=== PATIENT | female | born 2000 | race Caucasian/White ===

== ENCOUNTER → 2021-04-19 08:40 | Outpatient (CLI) | payer BC, MEDICAID, SELFPAY ==
--- NOTE | ~2021-04-19 | US_ITS ---
EXAMINATION: US OB follow up DATE: 04/19/2021 09:10 INDICATION: Anatomic survey. TECHNIQUE: Real-time ultrasound of the pelvis was performed. COMPARISON: None. FINDINGS: There is a single living fetus in breech presentation. The placenta is anterior, 7.8 cm from the cer vix. heart rate is 155 beats per minute (bpm). The amniotic fluid volume is subjectively normal . The following biometric data were obtained: Biparietal diameter (BPD): 5.5 cm; head circumference (HC): 20.3 cm; abdominal circumference (AC): 17 .7 cm; femur length (FL): 4.3 cm. These measurements are discordant with FL/AC > 2 standard deviations of the mean. Estimated weight is 563 g +/- 84 g, which correlates with the <3rd percentile when 07/11/21 is u sed as estimated date of delivery. As single measurements, these parameters are each equal to the following estimated gestational ages w ith ranges of +/- 2 standard deviations: BPD: 22 weeks 5 days (21 weeks 0 days - 24 weeks 3 days). HC: 22 weeks 3 days (21 weeks 0 days - 23 weeks 6 days). AC: 22 weeks 4 days (20 weeks 4 days - 24 weeks 5 days). FL: 24 weeks 0 days (22 weeks 1 days - 25 weeks 5 days). estimated gestational age based solely on measurements from this exam is 23 weeks 0 days +/- 1 weeks 4 days. The four-chamber heart view is normal. There is suboptimal visualization of the heart outflow t racts. IMPRESSION: 1. Single living fetus in breech presentation. 2. Small for gestational age. Estimated weight is 563 g +/- 84 g, which correlates with the <3 rd percentile when 07/11/21 is used as estimated date of delivery. 3. Discordant biometrics with high FL/AC. 4. Normal four-chamber heart view. Suboptimal visualization of the heart outflow tracts. Reviewed, dictated and finalized at location A. ER HELPER IMPRESSION: 1. Single living fetus in breech presentation. 2. Small for gestational age. Estimated weight is 563 g +/- 84 g, which correlates with the <3rd percentile when 07/11/21 is used as estimated date of d elivery. 3. Discordant biometrics with high FL/AC. 4. Normal four-chamber heart view. Suboptimal visualization of the heart outflow tracts.
== END ==
PROVIDERS: PCP Physician Assistant; Visit Provider Obstetrics & Gynecology Gynecology
DX: Z34.92 Encounter for supervision of normal pregnancy, unspecified, second trimester (principal); Z3A.23 23 weeks gestation of pregnancy
CPT/HCPCS: 76816

== ENCOUNTER 2021-06-23 16:06 | Inpatient (IN) | payer BC, OTHER, SELFPAY ==
[2021-06-23] VITALS (12 sets, daily range): BP systolic 100–124; BP diastolic 50–79; PULSE 88–112; TEMP 36.6; BMI 31.6
--- NOTE | 2021-06-23 16:06 | LDADM ---
This patient, Anette Mccall, was admitted to Labor/Delivery/Recovery 107 on 06/23/21 at 16:06. Plans for labor, pain management and were discussed with patient. Patient/family oriented to hospital policies and general routines including ID bracelet, bed and alarms, visiting hours, pain management, procedures, bathroom and other care routines, personal items, smoking policy, room service/diet and guest tray routines, security routines, and visiting hours. Patient/Family are encouraged to report perceived risks to care and to ask questions if they do not understand what they are told or what they should do. See OBIX for further documentation.
[2021-06-23 16:50] LABS: Basophils Absolute Auto 0.1 K/mm3 (0.0-0.1); Basophils Percent Auto 0.3 % (0.2-1.2); Eosinophils Absolute Auto 0.2 K/mm3 (0-0.3); Eosinophils Percent Auto 1.3 % (0-4.4); Hematocrit 30.3 % (37.0-47.0); Hemoglobin 10.2 g/dL (12.0-15.0); Immature Granulocyte Absolute 0.09 K/mm3 (0.00-0.031); Immature Granulocyte Percent A 0.5 % (0-0.5); Lymphocytes Absolute Auto 3.85 K/mm3 (0.9-3.2); Lymphocytes Percent Auto 21.5 % (18.3-44.2); Mean Corpuscular HGB Conc 33.7 g/dl (32-36); Mean Platelet Volume 9.7 fl (7.4-10.4); Monocytes Percent Auto 5.8 % (2.6-8.5); Neutrophils Absolute Auto 12.7 K/mm3 (1.3-6.7); Neutrophils Percent Auto 70.6 % (45.5-73.1); Platelet Count Result 362 k/mm3 (150-375); Red Blood Count 3.19 M/mm3 (4.2-5.4); Red Cell Distribution Width 12.7 % (11.5-14.5); White Blood Count 17.9 K/mm3 (4.5-10.0)
[2021-06-23] MEDS: DINOPROSTONE 10 MG VAG INSERT VAGINAL (16:52)
[2021-06-23 17:06] LABS: Amphetamine Screen Urine Negative (Negative); Barbiturate Screen Urine Negative (Negative); Benzodiazepines Screen Urine Negative (Negative); Cannabinoid Screen Urine Negative (Negative); Cocaine Screen Urine Negative (Negative); Methadone Screen Urine Negative (Negative); Opiate Screen Urine Negative (Negative); Phencyclidine Screen Urine Negative (Negative)
[2021-06-23 17:43] LABS: HIV 1/2 Ab P24 Ag Result Negative (Negative)
[2021-06-23] MEDS: ACETAMINOPHEN 500 MG TABLET 1000 MG PO (21:11)
[2021-06-24] VITALS (123 sets, daily range): BP systolic 66–124; BP diastolic 39–95; PULSE 71–125; TEMP 36.6–36.9; O2SAT 82–100
[2021-06-24] MEDS: fentaNYL CITRATE INJ (*CRX) 100 MCG/2 ML VIAL IV PUSH (00:13)
--- NOTE | 2021-06-24 03:43 | WPDANESEPP ---
Anes - Eval Pre Procedure Procedure: Labor epidural Date/Time: 06/24/21 03:43 Surgeon: Lex Preop Diagnosis: Abd pain with contractions Pre Op Diagnosis: Induction of Labor Patient Data Age: 20 Gender: F Height: 1.55 m Weight: 76 kg Last Vital Signs Temp 98 F 06/24/21 00:20 Pulse 83 06/24/21 03:30 BP 116/70 06/24/21 03:30 Allergies Allergy/AdvReac Type Severity Reaction Status Date / Time No Known Allergies Allergy Unverified 10/09/13 17:15 Home Medications Medication Instructions Recorded Confirmed Type PNV cmb#95-ferrous fumarate-FA 1 tablet PO DAILY 06/13/21 06/13/21 History [] escitalopram oxalate 10 mg PO DAILY 06/13/21 06/13/21 History ferrous sulfate [Iron (ferrous 325 mg PO DAILY 06/13/21 06/13/21 History sulfate)] metoclopramide HCl [Reglan] 10 mg PO Q6H PRN 06/13/21 06/13/21 History ondansetron HCl [Zofran] 8 mg PO Q8H 06/13/21 06/13/21 History Laboratory Tests 06/23/21 06/23/21 06/23/21 16:29 16:29 16:29 WBC 17.9 K/mm3 H K/mm3 (4.5-10.0) RBC 3.19 M/mm3 L M/mm3 (4.2-5.4) Hgb 10.2 g/dL L g/dL (12.0-15.0) Hct 30.3 % L % (37.0-47.0) MCV 95.0 fl fl (80-100) MCH 32.0 pg pg (26-34) MCHC 33.7 g/dl g/dl (32-36) RDW 12.7 % % (11.5-14.5) Plt Count 362 k/mm3 k/mm3 (150-375) MPV 9.7 fl fl (7.4-10.4) Immature Gran % (Auto) 0.5 % % (0-0.5) Neut % (Auto) 70.6 % % (45.5-73.1) Lymph % (Auto) 21.5 % % (18.3-44.2) Hardin % (Auto) 5.8 % % (2.6-8.5) Eos % (Auto) 1.3 % % (0-4.4) Baso % (Auto) 0.3 % % (0.2-1.2) Lymph # (Auto) 3.85 K/mm3 H K/mm3 (0.9-3.2) Hardin # (Auto) 1.0 K/mm3 H K/mm3 (0.1-0.6) Eos # (Auto) 0.2 K/mm3 K/mm3 (0-0.3) Baso # (Auto) 0.1 K/mm3 K/mm3 (0.0-0.1) Abs Immat Gran (auto) 0.09 K/mm3 H K/mm3 (0.00-0.031) Absolute Neuts (auto) 12.7 K/mm3 H K/mm3 (1.3-6.7) Absolute Nucleated RBC 0.0 K/mm3 K/mm3 (0.0-0.012) Nucleated RBC % 0.0 % % (0.0-0.2) Urine Opiates Screen Urine Methadone Screen Ur Barbiturates Screen Ur Phencyclidine Scrn Ur Amphetamine Screen U Benzodiazepines Scrn Urine Cocaine Screen U Cannabinoids Screen RPR Pending HIV 1&2 Ab/P24 Ag 4thGn Negative (Negative) Blood Type Antibody Screen 06/23/21 06/23/21 16:29 16:29 WBC RBC Hgb Hct MCV MCH MCHC RDW Plt Count MPV Immature Gran % (Auto) Neut % (Auto) Lymph % (Auto) Hardin % (Auto) Eos % (Auto) Baso % (Auto) Lymph # (Auto) Hardin # (Auto) Eos # (Auto) Baso # (Auto) Abs Immat Gran (auto) Absolute Neuts (auto) Absolute Nucleated RBC Nucleated RBC % Urine Opiates Screen Negative (Negative) Urine Methadone Screen Negative (Negative) Ur Barbiturates Screen Negative (Negative) Ur Phencyclidine Scrn Negative (Negative) Ur Amphetamine Screen Negative (Negative) U Benzodiazepines Scrn Negative (Negative) Urine Cocaine Screen Negative (Negative) U Cannabinoids Screen Negative (Negative) RPR HIV 1&2 Ab/P24 Ag 4thGn Blood Type O Positive Antibody Screen Negative Patient hx anesthesia problems: none Family hx anesthesia problems: none Results Review: All pre-operative results and documents have been reviewed as part of the pre-operative evaluation. [facility] Past Medical History Medical History Anxiet
[2021-06-24] MEDS: LACTATED RINGERS 1,000 ML 999 ML IV CONT ×2 (03:57→04:20)
[2021-06-24] MEDS: LACTATED RINGERS 1,000 ML 125 ML IV CONT ×3 (05:09→16:22)
[2021-06-24] MEDS: OXYTOCIN 30 UNITS/NS 500 ML 30 UNITS/500 ML BAG 6 UNITS IV CONT (05:40)
[2021-06-24] MEDS: fentaNYL CITRATE INJ (*CRX) 100 MCG/2 ML VIAL 50 MCG IV PUSH (07:49)
--- NOTE | 2021-06-24 07:51 | WPDOBADMIT ---
Obstetrics - Admit Note Admission Note: record reviewed. No pertinent additions to the history and/or any subsequent changes in the physical findings that are not consistent with the expected course of the were found. Additions to the history and/or subsequent changes in the physical findings follow. Here for MIL IUGR at 37wks. Followed by MFM and has been <1 %EFW for weeks. Normal dopplers, normal monitoring. Cervadil last pm. Cervix still closed/50. States feeling contractions all night. Now on Pitocin.
[2021-06-24 08:52] LABS: Rapid Plasma Reagin Non-Reactive (NonReactive)
--- NOTE | 2021-06-24 17:21 | PM.OBPNLAB ---
Pain Control Date/time seen: 06/24/21 17:21 Pelvic Exam Dilation (cm): 1 Effacement (%): 0 station: -2 Amniotic membrane status: Ruptured (AROM)
[2021-06-24] MEDS: ONDANSETRON INJ 4 MG/2 ML VIAL IV PUSH (20:45)
[2021-06-25] VITALS (196 sets, daily range): BP systolic 66–130; BP diastolic 22–84; PULSE 68–120; RESP 16–18; TEMP 36.4–37.2; O2SAT 92–100
[2021-06-25] MEDS: LACTATED RINGERS 1,000 ML 125 ML IV CONT (02:01)
[2021-06-25] MEDS: diphenhydrAMINE HCl INJ 50 MG/ML VIAL IV PUSH (02:48)
[2021-06-25] MEDS: OXYTOCIN 30 UNITS/NS 500 ML 30 UNITS/500 ML BAG 6 UNITS IV CONT (04:58)
--- NOTE | 2021-06-25 07:08 | PM.OBPNLAB ---
Pain Control Date/time seen: 06/25/21 07:08 Pain control: tolerating well and epidural Pelvic Exam Dilation (cm): 3 Effacement (%): 70 station: -2 Amniotic membrane status: Ruptured (AROM) Comments: cervix 3-4 cm Assessment and Plan Plan: continuous present management
[2021-06-25] MEDS: ESCITALOPRAM OXALATE 10 MG TABLET PO (08:42)
[2021-06-25] MEDS: AMPICILLIN 2 GM/NS 100 ML 2 GM/100 ML BAG IVPB (11:23)
--- NOTE | 2021-06-25 13:35 | PM.OBPRVD ---
OB - Delivery Note Procedure Delivery date: 06/25/21 Procedure: Events: Intrauterine Growth Restriction (IUGR) Induction method: AROM, Per Pitocin Protocol and Per Cervidil Protocol Delivery monitor: External FHT and Internal Uterine Route of delivery: Laceration Description: Perineal - 2nd Degree and Other (Right Bartholin gland marsupilization) Delivery repair: vicryl (3-0 vicryl) Specimen: Yes (placenta) Quantitative Blood Loss (ml): 150 Anesthesia type: Epidural Disposition: Floor Narrative: Right bartholin cyst 4x3cm I&D. marsupilized with 3-0 vicryl x 4 Baby Date of : 06/25/21 Weeks of gestation at delivery: 37 Infant gender: Female Weight (pounds): 4 presentation: vertex position: Right Occiput Anterior Placenta delivery description: Spontaneous Cord Vessel Description: 3 Vessels and Nuchal Cord (x 1) score one minute: 8 score five minutes: 9
--- NOTE | 2021-06-25 13:37 | PM.OBDSVD ---
DS: Admitting Diagnosis Discharge Date 06/26/21 Admitting Diagnosis IUP 37 wks for MIL for IUGR DS: Discharge Diagnosis Discharge Diagnosis (1) (normal spontaneous vaginal delivery): Code(s): O80 - Encounter for full-term uncomplicated delivery Status: Acute OB - DS: Summary OB Procedures : NST and Ultrasound OB Procedures Intrapartum: Spontaneous Vag Delivery OB Procedures: : Other (right bartholin cyst marsupilization) Peripartum Data Infant Delivery Method: Natural Vaginal Laceration Description: Perineal - 2nd Degree complications: none Status at Discharge Functional status at discharge: independent ambulation Overall status at discharge: patient is progressing back to baseline Time Spent with Patient Time attestation: Total time spent providing and/or coordinating discharge services: DS: Data Data Completed and Pending Pending studies at discharge: Pending at discharge 06/25/21 13:24 Surgical [PTH] Routine Discharge Plan Discharge Attending physician on discharge: Shannan Burnett Discharging Clinician: Shannan Burnett Anticipated Discharge Date/Time: 06/26/21 07:23 Patient Disposition: Home, Self-Care Activity: may shower and pelvic rest Diet: regular Patient Instructions: Antibiotic Form Stand Alone Forms: General Discharge Information Follow-up/Referrals: Shannan Burnett MD [Physician] - 6 Weeks Discharge Medications: Continued ferrous sulfate [Iron (ferrous sulfate)] 325 mg (65 mg iron) Tablet 325 mg PO DAILY RF: 0 PNV cmb#95-ferrous fumarate-FA [] 28 mg iron- 800 mcg Tablet 1 tablet PO DAILY RF: 0 escitalopram oxalate 10 mg Tablet 10 mg PO DAILY RF: 0 Discontinued ondansetron HCl [Zofran] 8 mg Tablet 8 mg PO Q8H RF: 0 metoclopramide HCl [Reglan] 10 mg Tablet 10 mg PO Q6H PRN (Reason: Nausea And Vomiting) RF: 0 Date of admission: 06/23/21 16:06 Primary Care Provider: PHYSICIAN,SPRAY FOAM INSTALLER Admitting Provider: Shannan Burnett Attending physician on admission: Shannan Burnett Condition: Stable Care Plan Goals: Plans Nexplanon at week 3
[2021-06-25] MEDS: OXYTOCIN 30 UNITS/NS 500 ML 30 UNITS/500 ML BAG 125 UNITS IV CONT (13:50)
[2021-06-25] MEDS: IBUPROFEN 600 MG TABLET PO ×2 (15:44→22:49)
[2021-06-25] MEDS: WITCH HAZEL 40 PADS 1 PAD TOPICAL (15:45)
--- NOTE | 2021-06-25 16:40 | PC.NURSE ---
Patient transferred to post room #281 per wheelchair at 1640. Support person present. Oriented to unit, room, information board, rooming in, admission packet and security measures. Patient verbalizes understanding.
--- NOTE | 2021-06-25 17:00 | PC.NURSE ---
Pt. states that she does not want to breast feed but desires to pump and feed along with formula feeding. Will set pt. up with breast pump and teach regarding use.
[2021-06-25] MEDS: ACETAMINOPHEN 325 MG TABLET 650 MG PO (20:21)
[2021-06-26] MEDS: ZOLPIDEM TARTRATE (*CRX) 5 MG TABLET PO (01:13)
[2021-06-26 04:30] VITALS: BP 124/72; PULSE 82; RESP 16; TEMP 36.9
[2021-06-26 05:28] LABS: Hematocrit 27.5 % (37.0-47.0)
--- NOTE | 2021-06-26 07:22 | PM.OBPNVD ---
OB - PN: Subj Subjective Date/time seen: 06/26/21 07:22 Patient comments: no complaints and pain well controlled baby status: other (getting transferred to [facility] ) feeding status: exclusively breast feeding OB - PN: Obj Data Labs CBC & Chem 7: 06/26/21 05:01 Labs: Laboratory Results - last 24 hr 06/26/21 05:01 Hgb 9.0 L Hct 27.5 L OB - PN A/P Plan day: 1 Plan: routine care, discharge home, follow up 6 weeks and other (Plans Nexplanon at week 3) Time Spent With Patient Time: Total time spent is greater than 50% in coordination of care (as documented) at patient's floor/unit and/or counseling patient: Exam : Bimanual exam- vagina & uterus: other (Uterus firm, nt @U)
[2021-06-26] MEDS: WITCH HAZEL 40 PADS 1 PAD TOPICAL (07:25)
[2021-06-26] MEDS: POLYSACCHARIDE IRON COMPLEX 150 MG CAPSULE PO (07:25)
[2021-06-26] MEDS: BENZOCAINE 20% AER SPR (*SP) 56 GM CAN 1 SPRAY TOPICAL (07:25)
[2021-06-26] MEDS: MULTIVIT/MIN/PREN/FOL AC/IRON TABLET 1 TAB PO (07:25)
[2021-06-26] MEDS: ESCITALOPRAM OXALATE 10 MG TABLET PO (07:26)
[2021-06-26] MEDS: IBUPROFEN 600 MG TABLET PO (07:26)
[2021-06-26 08:00] VITALS: BP 120/88; PULSE 88; RESP 20; TEMP 36.7; O2SAT 100
--- NOTE | 2021-06-26 09:45 | PC.NURSE ---
Discharge instructions given to pt. regarding when to make appt. with Dr. Burnett office. Pt. states that she does not desire to return tomorrow for follow up visit since infant transferred to [facility]. Pt. verbalized understanding. No questions or concerns voiced. Pt. mother at side.
--- NOTE | 2021-06-26 09:53 | WPDANLDPN2 ---
Anes-Prog Note L&D Date/Time: 06/26/21 09:53 Comfortable throughout: labor and delivery Neuraxial method: epidural Epidural/Spinal procedure site: clean & non-tender Neuro status: Neuro function grossly intact. Cardiovascular status: normal Respiratory status: normal Airway patency: baseline Mental status: baseline Post-Op hydration status: normal Vital Signs: Last Vital Signs Temp 36.7 C 06/26/21 08:00 Pulse 88 06/26/21 08:00 Resp 20 06/26/21 08:00 BP 120/88 06/26/21 08:00 Pulse Ox 100 06/26/21 08:00 Pain score (VAS): 0 I/O: Intake & Output 06/25/21 06/26/21 06/26/21 23:59 07:59 15:59 Intake Total 250 Output Total 85 Balance 165 Post-procedural complaints: none Patient feedback: Patient satisfied with anesthetic care.
--- NOTE | 2021-06-26 12:04 | PC.NURSE ---
1000 - Introductions were made and mother led the conversation with regards to her experience pumping to stimulate milk production for her baby. Reminded parents to use good handwashing to prevent infection. Infant is being transferred to [facility]. Reviewed production of human milk, pumping 8 times in 24 hours with 1-2 times at night, collecting and storage of breastmilk using the resource mom and baby guide. Reviewed community resources and outpatient services as listed in the mom and baby guide/[facility] website. Mother voiced understanding of information shared.
== END 2021-06-26 09:51 | disposition home or self-care (01) | DRG 807 ==
LOC: ANHLDR 06-25 13:39 → ANHOB2 06-25 16:44
PROVIDERS: Admitting Provider Obstetrics & Gynecology Gynecology; Visit Provider Obstetrics & Gynecology Gynecology
DX: O36.5930 Maternal care for other known or suspected poor fetal growth, third trimester, not applicable or unspecified (principal); Z37.0 Single live birth; Z3A.37 37 weeks gestation of pregnancy; O70.1 Second degree perineal laceration during delivery; O69.81X0 Labor and delivery complicated by cord around neck, without compression, not applicable or unspecified; O99.892 Other specified diseases and conditions complicating childbirth; N75.0 Cyst of Bartholin's gland
CPT/HCPCS: 36415; 80307; 84112; 85014; 85018; 85025; 86592; 86703; 86850; 86900; 86901; A9270; G0432; J0290; J1200; J2405; J2590; J2795; J3010; J7120

== ENCOUNTER 2021-11-04 13:22 | Emergency (ER) | payer BC, OTHER, SELFPAY ==
--- NOTE | ~2021-11-04 | XR_ITS ---
EXAMINATION: XR ankle RT min 3V DATE: 11/04/2021 13:38 INDICATION: Right ankle pain. TECHNIQUE: 4 views of right ankle were obtained. COMPARISON: None. FINDINGS: Bone alignment is normal. No fracture. Joint spaces are normal. There is ankle soft tissue swelling. IMPRESSION: 1. No fracture. Reviewed, dictated and finalized at location A. IMPRESSION: 1. No fracture.
--- NOTE | ~2021-11-04 | CT_ITS ---
EXAMINATION: CT foot RT wo con DATE: 11/04/2021 15:48 INDICATION: Calcaneus fracture. TECHNIQUE: Computed tomography (CT) of the right foot was performed without intravenous contrast. Aut omated exposure control and iterative reconstruction technique were employed. The dose-length product was 476.50 mGy-cm. COMPARISON: Right foot and ankle radiographs 11/04/2021 FINDINGS: There is a comminuted fracture of body of calcaneus. The main posterior fracture fragment d emonstrates impaction and 3 mm lateral displacement. Two nondisplaced fracture lines involve the post erior facet. Joint spaces are normal. There is moderate fatty atrophy of quadratus plantae muscle. IMPRESSION: 1. Comminuted intra-articular fracture of calcaneus, Lockhart type I. Reviewed, dictated and finalized at location A.
--- NOTE | ~2021-11-04 | CT_ITS ---
EXAMINATION: CT brain wo con DATE: 11/04/2021 16:12 INDICATION: head injury, bruising . TECHNIQUE: Computed tomography (CT) of the head was performed without intravenous contrast. The mA wa s adjusted according to patient size. Iterative reconstruction technique was employed. The dose-lengt h product was 605.33 mGy-cm. COMPARISON: None FINDINGS: No acute intracranial hemorrhage or extra-axial fluid collection. No hydrocephalus, mass, or herniation. No acute ischemic infarct. Unremarkable dural venous sinus attenuation. No acute osseous abnormality. Ethmoid air cell mucosal thickening, otherwise the aerated spaces are clear. IMPRESSION: No acute intracranial process. Reviewed, dictated and finalized at location K.
--- NOTE | ~2021-11-04 | XR_ITS ---
EXAMINATION: XR foot RT min 3V DATE: 11/04/2021 13:38 INDICATION: Right foot pain. Fall. TECHNIQUE: 4 views of right foot were obtained. COMPARISON: None. FINDINGS: There may be a joint depression fracture of calcaneus. Joint spaces are normal. IMPRESSION: 1. Possible joint depression fracture of calcaneus. Calcaneus CT is recommended. Reviewed, dictated and finalized at location A. IMPRESSION: 1. Possible joint depression fracture of calcaneus. Calcaneus CT is recommended .
[2021-11-04 13:20] VITALS: BP 134/79; PULSE 89; RESP 16; TEMP 36.5; O2SAT 99
[2021-11-04 14:14] VITALS: BP 122/99; PULSE 98; RESP 17; O2SAT 100
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
[2021-11-04 15:03] VITALS: BP 136/79; PULSE 94; RESP 16; O2SAT 100
[2021-11-04] MEDS: ONDANSETRON INJ 4 MG/2 ML VIAL IV PUSH (15:26)
[2021-11-04] MEDS: MORPHINE SULFATE (*CRX) 4 MG/ML INJ IV PUSH (15:26)
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
[2021-11-04] MEDS: HYDROmorphone HCL INJ (*CRX) 1 MG/ML SYR IV PUSH (17:28)
--- NOTE | 2021-11-04 17:38 | PC.NURSE ---
report given to CAROLINA Yañez at [facility]. pt placed in c-collar per their request.
[2021-11-04 18:37] VITALS: BP 149/96; PULSE 76; RESP 18; O2SAT 100
[2021-11-04 18:58] VITALS: PULSE 86; RESP 20; O2SAT 100
--- NOTE | 2021-11-13 10:21 | PC.NURSE ---
LATE ENTRY This note is being entered to document information to the patient's record. The following information was omitted on [11/13/21], by [CAROLINA De Santiago]. Per EDP Lyn Tate, posterior short leg splint applied to the right leg. VORB.
== END 2021-11-04 19:01 | disposition short-term general hospital (02) ==
PROVIDERS: Emergency Provider Emergency Medicine
DX: S92.061A Displaced intraarticular fracture of right calcaneus, initial encounter for closed fracture (principal); E66.3 Overweight; Z68.32 Body mass index [BMI] 32.0-32.9, adult; F41.9 Anxiety disorder, unspecified; F43.10 Post-traumatic stress disorder, unspecified; F17.200 Nicotine dependence, unspecified, uncomplicated; Y04.8XXA Assault by other bodily force, initial encounter
CPT/HCPCS: 29515; 70450; 73610; 73630; 73700; 96374; 96375; 99285; J1170; J2270; J2405; L0140

== ENCOUNTER → 2022-07-09 11:06 | Outpatient (CLI) | payer OTHER, MEDICAID, SELFPAY ==
--- NOTE | ~2022-07-09 | XR_ITS ---
EXAM: XR abdomen/kub 1V DATE: 07/09/2022 11:51 HISTORY: Rt flank pain x 2 wks . COMPARISON: None available. FINDINGS: Clear lung bases. Normal bowel gas pattern. No organomegaly. 3 and 4 mm calcifications pro ject over the right inferior kidney. Punctate calcifications project over the mid left kidney. Region al bones and soft tissues normal for age. IMPRESSION: Bilateral nephrolithiasis. Otherwise normal abdominal radiograph findings. Reviewed, dictated and finalized at location K. IMPRESSION: Bilateral nephrolithiasis. Otherwise normal abdominal radiograph fi ndings.
--- NOTE | ~2022-07-09 | XR_ITS ---
Thoracic spine: Clinical Indication: Back pain AP and lateral views were performed. No fracture is seen. There is normal alignment of the vertebrae. The intervertebral disc spaces appe ar normal. Paravertebral soft tissues appear normal. Impression: No significant abnormalities noted. Reviewed, dictated and finalized at [facility]. Impression: No significant abnormalities noted.
== END ==
PROVIDERS: PCP Physician Assistant; Visit Provider Physician Assistant
DX: M54.6 Pain in thoracic spine (principal); N20.0 Calculus of kidney
CPT/HCPCS: 72070; 74018

== ENCOUNTER 2024-09-30 08:57 | Outpatient (CLI) | payer OTHER, MEDICAID, SELFPAY ==
--- NOTE | ~2024-09-30 | MR_ITS ---
MRI of the brain Clinical History: Headache Technique: Axial and sagittal T1-weighted images were acquired. These were followed by axial T2-weigh cam, diffusion weighted, gradient, and FLAIR images. Following intravenous administration of 70 cc Mu ltiHance gadolinium, T1-weighted fat-sat imaging was performed in the axial and coronal planes. COMPARISON: 05/15/2013 Findings: No abnormal signal seen in the brain parenchyma. No acute infarct, intracranial hemorrhage, or mass lesion. Ventricles and subarachnoid spaces are unremarkable. Orbits are unremarkable. There is minimal ethmoi d sinus disease and sphenoid sinus disease. Remaining paranasal sinuses and mastoid air cells are tigist ar. Major intracranial flow-voids are intact. Sagittal midline structures are intact. No abnormal postcontrast enhancement identified. IMPRESSION: Minimal sinus disease, as above, otherwise unremarkable exam. Reviewed, dictated and finalized at [facility].
--- NOTE | ~2024-09-30 | XR_ITS ---
XR cervical spine 4-5V 09/30/2024 09:29 Indication: Neck pain Procedure: 3 views cervical spine Comparison: No prior studies for comparison. Findings: Reversal of cervical lordosis, possibly due to muscle spasm or patient positioning. No prev ertebral soft tissue swelling. Odontoid process is normal. Lateral masses normally aligned. Lung apic es are normal. No fracture, subluxation or dislocation. Impression: 1: No significant abnormality of the cervical spine. Reviewed, dictated and finalized at location B. Impression: 1: No significant abnormality of the cervical spine.
--- OUTSIDE RECORDS SUMMARY | 2024-09-30 09:05 | XMS_ITS | Encounter Summary ---
Author Organization [facility] Address [address] [place] [address] Care Team Providers Care Line Staker Name Role Phone Unavailable Primary Care Provider Unavailabl e Prior Encounters Date Type Department Care Team Description 10/23/2021 Travel 10/23/2021 8:00 AM CDT Office Visit [facility] [address] [place] [address] AugustNicola DDS 10/17/2021 11:00 AM CDT Office Visit [facility] [address] [place] [address] Nicola Bhatia DDS 05/09/2019 Converted CPS Chart Documents [facility] [address] [id number] <No scans attached> 05/09/2019 Converted 13x Documents [facility] [address] [id number] <No scans attached> Last Filed Vital Signs Vital Sign Reading Time Taken Comments Blood Pressure 109/80 10/17/2021 11:25 AM CDT Pulse 87 10/17/2021 11:25 AM CDT Temperature - - Respiratory Rate - - Oxygen Saturation - - Inhaled Oxygen Concentration - - Weight - - Height - - Body Mass Index - - Plan of Treatment Not on file Procedures Procedure Name Priority Date/Time Associated Diagnosis Comments 13 CORE BUILDUP, INCLUDING ANY PINS WHEN REQUIRED Routine 10/23/2021 8:00 AM CDT 13 ENDODONTIC THERAPY, PREMOLAR TOOTH (EXCLUDING FINAL PENTECOSTALISM) Routine 10/23/2021 8:00 AM CDT 13 CEMENT CROWN Routine 10/23/2021 8:00 AM CDT 13 CERECFIRED CROWNPOST Routine 10/24/19 8:00 AM CDT INTRAORAL PHOTO Routine 10/17/2021 11:00 AM CDT INTRAORAL PHOTO Routine 10/17/2021 11:00 AM CDT INTRAORAL PHOTO Routine 10/17/2021 11:00 AM CDT INTRAORAL PHOTO Routine 10/17/2021 11:00 AM CDT PANORAMIC RADIOGRAPHIC IMAGE Routine 10/17/2021 11:00 AM CDT INTRAORAL - COMPREHENSIVE SERIES OF RADIOGRAPHIC IMAGES Routine 10/17/2021 11:00 AM CDT COMPREHENSIVE ORAL EVALUATION - NEW OR ESTABLISHED PATIENT Routine 10/17/2021 11:00 AM CDT 3 O AMALGAM 1 SURFACE Routine 06/18/2016 2:00 AM [employer] 9 ENDODONTIC THERAPY, ANTERIOR TOOTH (EXCLUDING FINAL PENTECOSTALISM) Routine 06/18/2016 2:00 AM [employer] COMPREHENSIVE ORAL EVALUATION - NEW OR ESTABLISHED PATIENT Routine 06/18/2016 2:00 AM [employer] ORAL HYGIENE INSTRUCTIONS Routine 2016 2:00 AM [employer]N PROPHYLAXIS - ADULT Routine 06/18/2016 2 :00 AM [employer]N INTRAORAL - COMPREHENSIVE SERIES OF RADIOGRAPHIC IMAGES Routine 06/18/2016 2:00 AM [employer]N INTRAORAL PHOTO Routine 06/18/2016 2:00 AM [employer]N INTRAORAL PHOTO Routine 06/18/2016 2:00 AM [employer]N INTRAORAL PHOTO Routine 06/18/2016 2:00 AM [employer]N INTRAORAL PHOTO Routine 06/18/2016 2:00 AM [employer]N Visit Diagnoses Not on file Insurance
--- OUTSIDE RECORDS SUMMARY | 2024-09-30 09:05 | XMS_ITS | Data Portability ---
Author Organization [place] [facility], Main Office Address [address] [place] [address] Assessment No assessment recorded. Plan of Treatment Reminders Order Date Submit Date Provider Last Modified By Organization Details Last Modified Time Details Appointments None recorded. Lab TSH + free T4, serum [address] (Lab), [address] [place], [address], 3 15:27:05 urinalysis, reflex culture [address] (Lab), [address] [place], [address], 3 15:27:06 CMP, serum or plasma [address] (Lab), [address] [place], [address], 3 15:27:05 CMP, serum or plasma [address] (Lab), [address] [place], [address], 3 15:27:05 vitamin B12 + folate, serum or blood [address] (Lab), [address] [place], [address], 3 15:27:05 CBC w/ auto diff 2022 023 [email or web address] [facility] (Lab), [address] [place], [address], 3 15:27:06 lipid panel, serum 2022 023 [email or web address] [facility] (Lab), [address] [place], [address], 3 15:27:06 HbA1c (hemoglobin A1c), blood [email or web address] (Lab), [address] [place], [address], 3 15:27:06 Referral psychiatris t referral - Riya Cleaning MD requested provider 2022 023 [email or web address] [facility], [address] [facility], [address], [place], [address], 4 12:05:20 Procedures None recorded. Surgeries None recorded. Imaging home sleep study - ring device 2022 023 STEPAN Gonsaleztone, [address] [facility], [place], [address], 3 09:10:21 XR, thoracic spine, 2 view 2022 023 STEPAN Not available 3 08:53:42 XR, kidney + ureter + bladder 2022 023 STEPAN Not available 3 08:53:04 Medication Orders amoxicillin 875 mg-potassiu m clavulanate 125 mg tablet 2022 023 [email or web address] [facility] [id number] , [place], [address], 3 19:02:55 prednisone 20 mg tablet 2022 023 [email or web address] [id number], [address], [place], [address], 3 19:02:56 methocarbam ol 750 mg tablet 2022 023 [email or web address] 4 [facility][id number], [address], [place], [address], 3 11:49:47 diclofenac sodium 75 mg tablet,rock yed release 2022 023 [email or web address] 4 [facility][id number], [address], [place], [address], 3 11:49:22 Patient TargetsNo targets recorded. Patient InstructionsNo instructions recorded. Reason for Referral Psychiatrist Referral for Mo od swings establish care for proper diagnosis and treatment for mood/personality disorder Riya Cleaning MD requested provider Referring Physician: Kaleigh Wetzel, Internal Medicine, Encounter Date: 07/09/2022 Results Created Date Observation Date Name Description Value Unit Range Abnormal Flag Note LastModifiedBy Organization Detail LastModifiedTime 03/18/20 21 03/18/2021 US, obste tric, 2nd or 3rd trime ster No observ ation record ed. [id number] , [place], [address], 06/18/2022 20:41:00 08/27/19 22 08/23/2021 XR, chest No observ ation record ed. [id number] [facility] [address], [place], [address], 06/18/2022 20:41:00 07/11/19 23 07/09/2022 XR, kidne y + urete r + bladd er No observ ation record ed. [email or web address] [facility] [address], [place], [address], 07/15/2022 10:04:44 07/11/19 23 07/09/2022 XR, thora cic spine , 2 view No observ ation record ed. [email or web address] [facility] [address], [place], [address], 07/15/2022 10:04:44 02/11/20 23 02/01/2023 home sleep study No observ ation record ed. [email or web address] [facility] (Home Sleep Studies) [address], [place], [address], 02/27/2023 10:17:07 Result Notes None recorded. Problems Name Problem SNOMED Code Status Onset Date Resolution Date Notes Provider Name and Address Organization Details Recorded Time Otalgia of left ear 3277578130 Active 2021 Not Available [facility] 3 20:40:00 Nausea and vomiting 11917557 Active 2021 Not Available [facility] 3 20:40:00 Mood swings 85963168 Active 2021 Not Available [facility] 3 20:40:01 Insomnia 895317024 Active 2018 [facility] Available [facility] 3 20:40:01 Chronic constipation 442788361 Active 2018 Not Available [facility] 3 20:40:01 Depressive disorder 44340604 Active 2021 Not Available [facility] 3 20:40:01 Acute pharyngitis 884175228 Active 2021 Not Available [facility] 3 20:40:01 Migraine 06144672 Active 2018 Not Available [facility] 3 20:40:01 COVID-19 953743444 Active 2021 Not Available [facility] 3 20:40:01 Thoracic back pain 834338868 Active 2022 SAMMY Suh [address] [place] [address], [address], [place], [address] , [facility] 3 11:29:12 Acute sinusitis 89591825 Active 2022 SAMMY Suh [address], [address], [place], [address] , [facility] [employer] [facility] 3 12:06:08 Apnea 1766872 Active 2022 SAMMY Suh [address], [address], [place], [address] , [facility] [employer] [facility] 3 12:06:40 Sleep apnea 53850955 Active 2022 SAMMY Suh [address], [address], [place], [address] , [facility] [employer] [facility] 3 12:06:50 Dizziness 990656771 Active 2022 SAMMY Suh [address], [address], [place], [address] , [facility] [employer] [facility] 3 12:08:06 Notes:Some problems listed i n Document: #[id number] could not be added to this patient's chart. Please review this document and add these problems to the patient's chart manually as needed. Problem Notes None recorded. Procedures Surgical History Date Name Laterality Status Provider Name and Address Organization Details Recorded Time 2 Orthopedic Surgery completed Not Available [facility] 06/18/2022 20:39:14 Imaging Results None recorded. Procedure Notes None recorded. Medical Equipment None Reported. Allergies Allergen ID Allergen Name Allergen Category Reaction Reaction Severity Criticality Documentation Date Start Date Code Code System Note Provider Name and Address Organization Details Recorded Time 72958 Augmentin medicatio n diarrhea Not available Not available 06/18/2022 77527 2 RxNorm Not Available [facility] 20:40:57 Medications Name Sig Start Date Stop Date Status Note LastModified by Organization Details LastModified Time quetiapine 25 mg tablet TAKE 1 TABLET BY MOUTH TWICE A DAY DIRECTED active Not Available Not Available No t Available cyclobenzap rine 10 mg tablet TAKE 1 TABLET BY MOUTH EVERY 8 HOURS PRN active Not Available Not Available No t Available amoxicillin 500 mg capsule TAKE 1 CAPSULE BY MOUTH THREE TIMES A DAY UNTIL GONE active Not Available Not Available No t Available doxepin 50 mg capsule 01/22 completed Not Available Not Available Not Available clindamycin HCl 300 mg capsule TAKE 1 CAPSULE BY MOUTH EVERY 6 HOURS active Not Available Not Available No t Available azithromyci n 250 mg tablet TAKE 2 TABLETS (500 MG) BY ORAL ROUTE ONCE DAILY FOR 1 DAY THEN 1 TABLET (250 MG) BY ORAL ROUTE ONCE DAILY FOR 4 DAYS 04/01 completed Not Available Not Available Not Available ibuprofen 800 mg tablet TAKE 1 TABLET BY MOUTH EVERY 6 HOURS NEEDED active Not Available Not Available No t Available fluconazole 150 mg tablet TAKE 1 TABLET BY MOUTH EVERY DAY FOR 3 DAYS active Not Available Not Available No t Available doxepin 25 mg capsule 10/05 completed Not Available Not Available Not Available ranitidine 300 mg tablet TK 1 T PO BID 06/15 completed Not Available Not Available Not Available hydrocodone 5 mg-acetamin ophen 325 mg tablet TAKE 1 TABLET BY MOUTH ONCE EVERY 6 HOURS NEEDED FOR PAIN 01/22 completed Not Available Not Available Not Available meloxicam 15 mg tablet Take 1 tablet every day by oral route. 08/28 completed Not Available Not Available Not Available metronidazo le 0.75 % (37.5 mg/5 gram) vaginal gel INSERT 1 APPLICATO RFUL INTO THE VAGINA ONCE EVERY NIGHT AT BEDTIME FOR 5 DAYS 01/22 completed Not Available Not Available Not Available ondansetron HCl 4 mg tablet TAKE 1 TABLET BY MOUTH EVERY 6 HOURS NEEDED 04/01 completed Not Available Not Available Not Available famotidine 40 mg tablet Take 1 tablet every day by oral route with meals. 04/02 completed Not Available Not Available Not Available prednisone 20 mg tablet Take 2 tablets every day by oral route for 5 days. 2022 active Not Available Not Available Not Avai lable quetiapine 200 mg tablet TAKE 1 TABLET BY MOUTH EVERY DAY AT BEDTIME FOR 30 DAYS active Not Available Not Available No t Available terconazole 0.8 % vaginal cream INSERT 1 APPLICATO RFUL VAGINALLY ONCE DAILY X 3 DAYS active Not Available Not Available No t Available penicillin V potassium 500 mg tablet TAKE 1 TABLET BY MOUTH IN THE MORNING AND THEN TAKE 1 TABLET AT NOON AND THEN TAKE 1 TABLET IN THE EVENING AND THEN TAKE 1 TABLET BEFORE BEDTIME, DO ALL OF THIS FOR 10 DAYS 01/22 completed Not Available Not Available Not Available metronidazo le 500 mg tablet active Not Available Not Available Not Available hydroxyzine HCl 50 mg tablet 10/10 completed Not Available Not Available Not Available sulfamethox azole 800 mg-trimetho prim 160 mg tablet 10/05 completed Not Available Not Available Not Available tramadol 50 mg tablet 10/05 completed Not Available Not Available Not Available quetiapine 100 mg tablet TAKE 1 TABLET BY MOUTH EVERY DAY AT BEDTIME FOR 30 DAYS active Not Available Not Available No t Available lamotrigine 25 mg tablet TAKE 2 TABLETS BY MOUTH TWICE A DAY active Not Available Not Available No t Available Macrobid 100 mg capsule Take 1 capsule every 12 hours by oral route. 03/13 completed Not Available Not Available Not Available meloxicam 7.5 mg tablet TAKE 1 TABLET BY MOUTH EVERY DAY active Not Available Not Available No t Available oxycodone-a cetaminophe n 5 mg-325 mg tablet TAKE 1 TABLET BY MOUTH EVERY 6 HOURS NEEDED FOR SEVERE PAIN FOR UP TO 5 DAYS 04/01 completed Not Available Not Available Not Available amoxicillin 875 mg tablet TAKE 1 TABLET BY MOUTH EVERY 12 HOURS UNTIL GONE active Not Available Not Available No t Available methocarbam ol 750 mg tablet TAKE 1 TABLET BY MOUTH EVERYDAY AT BEDTIME active Not Available Not Available No t Available trazodone 100 mg tablet TK 1 T PO D 06/15 completed Not Available Not Available Not Available Kenalog 10 mg/mL suspension for injection In office injection administe red by the provider 10/29 completed [facility]: [phone] Not Available Not Available Not Available benzonatate 100 mg capsule TAKE 1 CAPSULE BY MOUTH EVERY 8 HOURS NEEDED 01/07 completed Not Available Not Available Not Available hydrocodone 7.5 mg-acetamin ophen 325 mg tablet 03/12 completed Not Available Not Available Not Available oseltamivir 75 mg capsule TAKE 1 CAPSULE BY MOUTH EVERY 12 HOURS FOR 5 DAYS 01/07 completed Not Available Not Available Not Available promethazin e 25 mg tablet 10/05 completed Not Available Not Available Not Available sertraline 25 mg tablet TK 1 T PO D 06/15 completed Not Available Not Available Not Available diclofenac sodium 75 mg tablet,rock yed release Take 1 tablet twice a day by oral route with meals. 01/08 completed Not Available Not Available Not Available zolpidem 5 mg tablet 10/05 completed Not Available Not Available Not Available mirtazapine 15 mg tablet TAKE 1 TABLET BY MOUTH AT BEDTIME 03/12 completed Not Available Not Available Not Available ibuprofen 600 mg tablet TAKE 1 TABLET BY MOUTH EVERY 6 HOURS NEEDED FOR MILD PAIN 01/22 completed Not Available Not Available Not Available levofloxaci n 500 mg tablet 10/29 completed Not Available Not Available Not Available methylpredn isolone 4 mg tablets in a dose pack TAKE BY MOUTH DIRECTED ON INSIDE OF PACKAGE 01/22 completed Not Available Not Available Not Available albuterol sulfate HFA 90 mcg/actuati on aerosol inhaler INHALE 2 PUFFS BY MOUTH EVERY 4 HOURS NEEDED 01/08 completed Not Available Not Available Not Available Vitamin D2 1,250 mcg (50,000 unit) capsule Take 1 capsule every week by oral route. 10/05 completed Not Available Not Available Not Available ondansetron 4 mg disintegrat ing tablet Take 1 tablet every 6-8 hours by oral route as needed. active Not Available Not Available No t Available fluticasone propionate 50 mcg/actuati on nasal spray,suspe nsion [place] 2 sprays every day by intranasa l route. 10/10 completed Not Available Not Available Not Available sertraline 50 mg tablet TAKE 1 AND 1/2 (ONE AND ONE-HALF) TABLETS BY MOUTH ONCE DAILY FOR 30 DAYS active Not Available Not Available No t Available lamotrigine 100 mg tablet TAKE 1 TABLET BY MOUTH TWICE A DAY DIRECTED active Not Available Not Available No t Available naproxen 500 mg tablet TAKE 1 TABLET BY MOUTH TWICE A DAY 04/02 completed Not Available Not Available Not Available metoclopram le 10 mg tablet TAKE 1 TABLET BY MOUTH EVERY 6 HOURS NEEDED FOR NAUSEA 01/22 completed Not Available Not Available Not Available amoxicillin 875 mg-potassiu m clavulanate 125 mg tablet TAKE 1 TABLET BY MOUTH EVERY 12 HOURS active Not Available Not Available No t Available Denta 5000 Plus 1.1 % cream APPLY TO TEETH ONCE DAILY 01/22 completed Not Available Not Available Not Available escitalopra m 10 mg tablet TAKE 1 TABLET BY MOUTH ONCE DAILY 04/02 completed Not Available Not Available Not Available escitalopra m 20 mg tablet TAKE 1 TABLET BY MOUTH ONCE DAILY 04/02 completed Not Available Not Available Not Available aripiprazol e 10 mg tablet 01/22 completed Not Available Not Available Not Available aripiprazol e 5 mg tablet 10/05 completed Not Available Not Available Not Available chlorhexidi ne gluconate 0.12 % mouthwash RINSE MOUTH WITH 1/2 OUNCE FOR 30 SECONDS TWICE DAILY active Not Available Not Available No t Available alprazolam 08/28 completed Not Available Not Available Not Available Abilify 03/12 completed Not Available Not Available Not Available lidocaine (PF) 10 mg/mL (1 %) injection solution In office injection administe red by the provider 10/29 completed [facility]: [phone] Not Available Not Available Not Available Sronyx 0.1 mg-20 mcg tablet TAKE 1 TABLET BY MOUTH EVERY DAY 12/21 completed Not Available Not Available Not Available quetiapine 50 mg tablet TAKE 1 TABLET BY MOUTH EVERY DAY IN THE MORNING active Not Available Not Available No t Available Zipsor 25 mg capsule Take 1 capsule 4 times a day by oral route. 12/21 completed Not Available Not Available Not Available Lo Loestrin Fe 1 mg-10 mcg (24)/10 mcg (2) tablet TAKE 1 TABLET BY MOUTH ONCE DAILY 04/02 completed Not Available Not Available Not Available EluRyng 0.12 mg-0.015 mg/24 hr vaginal ring INSERT 1 RING VAGINALLY AND LEAVE IN PLACE FOR 3 CONSECUTI VE WEEKS. THEN REMOVE FOR 1 WEEK NEEDS APPT 03/12 completed Not Available Not Available Not Available Paxlovid 300 mg (150 mg x 2)-100 mg tablets in a dose pack 300 mg nirmatrel vir (two 150 mg tablets) with 100 mg ritonavir (one 100 mg tablet) with all three tablets taken together orally twice daily for 5 days. active Not Available Not Available No t Available Vitals Date Recorded Body height Body temperature Body mass index (BMI) Body weight Respiratory rate Oxygen saturation Oxygen saturation in Arterial blood by Pulse oximetry Heart rate Systolic blood pressure Diastolic blood pressure Provider Name and Address Organization Details Last Updated DateTime 3 154.94 cm 97 [degF] 34.4 kg/m2 51329.8 1 g 20 /min 98 % 98 % 114 /min 118 mm[Hg] 78 mm[Hg] JO[facility] LUIS [facility] 3 11:08:29 Date Recorded Body height Body temperature Body mass index (BMI) Body weight Respiratory rate Oxygen saturation Oxygen saturation in Arterial blood by Pulse oximetry Heart rate Systolic blood pressure Diastolic blood pressure Provider Name and Address Organization Details Last Updated DateTime 3 154.94 cm 98 [degF] 33.1 kg/m2 23050.6 6 g 16 /min 99 % 99 % 98 /min 128 mm[Hg] 80 mm[Hg] JOSE LUIS Noriega [facility] [employer] [facility] 3 11:50:49 Date Recorded Body height Oxygen saturation Oxygen saturation in Arterial blood by Pulse oximetry Heart rate Respiratory rate Body temperature Systolic blood pressure Diastolic blood pressure Provider Name and Address Organization Details Last Updated DateTime 2 154.94 cm 98 % 98 % 66 /min 16 /min 97.5 [degF] 122 mm[Hg] 76 mm[Hg] Not Available [facility] 3 20:39:51 Date Recorded Body mass index (BMI) Body height Oxygen saturation Oxygen saturation in Arterial blood by Pulse oximetry Heart rate Body temperature Body weight Systolic blood pressure Diastolic blood pressure Provider Name and Address Organization Details Last Updated DateTime 1 29.4 kg/m2 154.94 cm 98 % 98 % 98 /min 97.6 [degF] 48998.2 5 g 110 mm[Hg] 60 mm[Hg] Not Available [facility] 3 20:39:51 Date Recorded Body mass index (BMI) Body height Oxygen saturation Oxygen saturation in Arterial blood by Pulse oximetry Heart rate Respiratory rate Body temperature Body weight Systolic blood pressure Diastolic blood pressure Provider Name and Address Organization Details Last Updated DateTime 2 35.9 kg/m2 154.94 cm 97 % 97 % 83 /min 16 /min 97.2 [degF] 62468.5 5 g 130 mm[Hg] 88 mm[Hg] Not Available [facility] 3 20:39:51 Social History Question Answer Notes LastModified by Organizat ion Details LastModified Time Tobacco Smoking Status Current Every Day Smoker Not Available [facility] 06/18/2022 20:39:09 Do You Have An Advance Directive? No [id number] Information not available 06/18/2022 If You Are , What Was Your Level Of Alcohol Consumption Prior To ? None [id number] Information not available 06/18/2022 Do You Wear A Helmet When Biking? No [id number].[id number] Information not available 06/18/2022 What Is Your Level Of Caffeine Consumption? Moderate [id number].[id number] 1526 Information not available 06/18/2022 How Much Tobacco Do You Chew? None MIGRATION.[id number] 5803 Information not available 06/18/2022 In The 14 Days Before Symptom Onset, Have You Had Close Contact With A Laboratory-confirm ed COVID-19 While That Case Was Ill? No [id number] 1237 Information not available 06/18/2022 In The 14 Days Before Symptom Onset, Have You Had Close Contact With A Person Who Is Under Investigation For COVID-19 While That Person Was Ill? No [id number] Information not available 06/18/2022 What Type Of Diet Are You Following? REGULAR MIGRATION.[id number] 4655 Information not available 06/18/2022 Which Illicit Or Recreational Drugs Have You Used? Cannabis MIGRATION.[id number] 6397 Information not available 06/18/2022 What Is The Highest Grade Or Level Of School You Have Completed Or The Highest Degree You Have Received? [id number] MIGRATION.678339 5979 Information not available 06/18/2022 Have There Been Any Changes To Your Family Or Social Situation? Yes MIGRATION.044109 4146 Information not available 06/18/2022 Are There Any Guns Present In Your Home? No MIGRATION.[id number] 4355 Information not available 06/18/2022 Do You Use Insect Repellent Routinely? Yes [id number].[id number] 1664 Information not available 06/18/2022 Do You Have A Medical Power Of Fitter Up? No MIGRATION.510854 8010 Information not available 06/18/2022 What Was The Date Of Your Most Recent Tobacco Screening? 10/29/2020 MIGRATION.[id number] 4672 Information not available 06/18/2022 Have You Ever Been Counseled For Unhealthy Alcohol Use? No MIGRATION.120931 2953 Information not available 06/18/2022 Do You Have Any Pets? No MIGRATION.257474 9172 Information not available 06/18/2022 What Is Your Relationship Status? Single MIGRATION.896773 1067 Information not available 06/18/2022 Do You Use Your Seat Belt Or Car Seat Routinely? Yes MIGRATION.504012 1512 Information not available 06/18/2022 Are You Sexually Active? Yes [email or web address] Information not available 07/08/2022 Do You Have Smoke And Carbon Monoxide Detectors In Your Home? Yes MIGRATION.129046 1696 Information not available 06/18/2022 At What Age Did You Start Smoking Tobacco? 16 MIGRATION.975491 5038 Information not available 06/18/2022 Are You Passively Exposed To Smoke? Yes MIGRATION.461375 2055 Information not available 06/18/2022 Are There Any Smokers In Your House? Yes MIGRATION.709956 7926 Information not available 06/18/2022 How Much Tobacco Do You Smoke? 0.25 PPD MIGRATION.305012 3062 Information not available 06/18/2022 Do You Use Sunscreen Routinely? Yes MIGRATION.206904 3577 Information not available 06/18/2022 Has Tobacco Cessation Counseling Been Provided? No MIGRATION.837422 5405 Information not available 06/18/2022 Have You Recently Traveled Abroad? No MIGRATION.342108 5619 Information not available 06/18/2022 Do You Have Any Dietary Restrictions? No MIGRATION.458282 1781 Information not available 06/18/2022 Sex: Female Functional Status Question Answer Note LastModified by Organizat ion Details LastModified Time Do you use any illicit or recreational drugs? Yes MIGRATION.465381 0480 Information not available 06/18/2022 Do you or have you ever used any other forms of tobacco or nicotine? Yes MIGRATION.669529 4234 Information not available 06/18/2022 What is your level of alcohol consumption? None MIGRATION.776634 5515 Information not available 06/18/2022 Do you or have you ever used smokeless tobacco? Never used smokeless tobacco MIGRATION.451728 1962 Information not available 06/18/2022 Are you currently employed? No [email or web address] Information not available 07/08/2022 Do you or have you ever used e-cigarettes or vape? Current user of electronic cigarettes MIGRATION.119866 7541 Information not available 06/18/2022 What is your exercise level? Occasional MIGRATION.995287 6703 Information not available 06/18/2022 Mental Status Question Answer Note LastModified by Organizat ion Details LastModified Time Do you feel stressed (tense, restless, nervous, or anxious, or unable to sleep at night)? [id number] MIGRATION.[id number] 6 Information not available 06/18/2022 Family History Relationship Description Onset Age of this Age Resolved Age Notes LastModified by Organization Details LastModified Time Mother Depressive disorder [id number] Not available 06/18/2022 20:39:15 Sister Depressive disorder MIGRATION.067 [id number] Not available 06/18/2022 20:39:15 Paternal Aunt Depressive disorder MIGRATION.779 [id number] Not available 06/18/2022 20:39:15 Paternal Aunt Diabetes mellitus MIGRATION.[id number] Not available 06/18/2022 20:39:15 Paternal Uncle Depressive disorder MIGRATION.509 [id number] Not available 06/18/2022 20:39:15 Paternal Grandfather Kidney disease MIGRATION.655 [id number] Not available 06/18/2022 20:39:15 Paternal Grandfather Diabetes mellitus MIGRATION.632 [id number] Not available 06/18/2022 20:39:15 Paternal Grandfather Malignant neoplastic disease MIGRATION.983 [id number] Not available 06/18/2022 20:39:15 Paternal Grandmother Heart disease MIGRATION.458 [id number] Not available 06/18/2022 20:39:15 Medical History Condition Response HEADACHES/MIGRAINES Y ULCERS Y ANXIETY DISORDER Y KIDNEY STONES Y CONSTIPATION Y BOWEL PROBLEMS Y DEPRESSION (INCLUDING POST ) Y INSOMNIA Y HAVE YOU BEEN HOSPITALIZED OR SEEN IN [facility] IN THE PAST YEAR ? Y Gynecological History Statement/Question Response Menses Monthly N How many live births 1 Abnormal Pap Y Date of Last Pap 01/04/2022 Current Control Method Implant Date of LMP 07/19/2021 Sexually Active? Y Obstetrics History GPAL:G 1 P 0 1 0 1 Type Value Premature 1 Living 1 Total 1 Past Encounters Encounter ID Performer Location Encounter Start Date Encounter Closed Date Diagnosis/Indication Diagnosis SNOMED-CT Code Diagnosis ICD10 Code Diagnosis Note [id number] SAMMY Suh [facility] Gautam Carpenter [address] [address] [place] [address] 03/12/2021 00:00:00 03/15/2021 22:43:38 [id number] SAMMY Suh [facility] [address] [facility] [address], [address] [place] [address] [place] [address] 01/22/2022 00:00:00 02/17/2022 15:20:11 [id number] [facility] [place] [address] [facility] [address], [address] [place] [address] [place] [address] 04/02/2022 00:00:00 04/17/2022 10:31:26 [id number] [facility] [place] [address] [address], [address] [place] [address] [place] [address] 07/09/2022 10:54:34 07/09/2022 11:36:42 Thoracic back pain [id number] M54.6 check xray tspine. start muscle relaxer for short term trial. start nsaid therapy. check KUB to evaluate for renal etiology like stone. Mood swings [id number] R45 .[facility] mood disorder. [id number] Cherie Vargas NP [facility] [address] [address] 08/05/2022 13:51:45 08/05/2022 17:08:29 [id number] Cherie Vargas NP [facility] [address] [facility] [address] 09/09/2022 13:58:11 09/09/2022 14:44:37 [id number] Cherie Vargas NP [facility] [address] [facility] [address] 10/15/2022 17:55:18 10/16/2022 17:46:43 [id number] SAMMY Suh [facility] [place] [address] [address], [address] [place] [address] [place] [address] 01/08/2023 11:41:36 01/08/2023 12:26:19 Acute sinusitis [id number] J01.90 start prednisone 40mg daily x 5 days. start augmentin therapy course. Sleep apnea [id number] G47 .30 refer for home sleep study Dizziness [id number] R42 check b12, folate, cmp panel Thyroid di sorder screening [id number] Z13.29 screening TFTs due Diabetes m ellitus screening [id number] Z13.1 screening A1c due Cholesterol screening 27 5524151 Z13.220 fasting lipids due Long-term drug therapy 535514620 Z79.899 check UA [id number] Cherie Vargas NP [facility] [address] [place] [address] 02/10/2023 16:24:06 02/11/2023 14:32:39 [id number] Cherie Vargas NP [facility] [address] [address] 03/10/2023 13:58:22 03/10/2023 16:30:50 [id number] Cherie Vargas NP [facility] [address] [address] 04/07/2023 17:45:21 04/27/2023 15:38:32 [id number] Cherie Vargas NP [facility] [address] [address] 05/13/2023 17:17:11 05/13/2023 18:11:47 [id number] Cherie Vargas NP [facility] [address] [address] 06/15/2023 17:16:44 06/15/2023 17:40:51 [id number] Cherie Vargas NP [facility] [address] [address] 08/10/2023 13:58:49 08/10/2023 15:04:01 [id number] [facility] [address] [place] [address] 09/21/2023 17:50:55 09/22/2023 17:15:16 [id number] [facility] [address] [address] 10/26/2023 17:52:12 10/27/2023 12:20:37 [id number] Cherie Vargas NP [facility] [address] [address] 11/23/2023 17:31:11 11/23/2023 18:55:35 [id number] Cherie Vargas NP [facility] [address] [address] 01/25/2024 16:15:49 01/25/2024 19:26:23 [id number] Cherie Vargas NP [facility] [address] [address] 02/22/2024 14:19:24 02/22/2024 14:51:45 [id number] Cherie Vargas NP [facility] [address] [address] 04/06/2024 10:36:43 04/06/2024 10:55:37 [id number] Cherie Vargas NP [facility] [address] [address] 06/07/2024 15:12:03 06/07/2024 16:14:00 [id number] Cherie Vargas NP [facility] [address] [address] 07/27/2024 16:54:36 07/27/2024 17:18:08 Health Concerns Section Related Observation LastModified by Organization Detai ls LastModified Time None Recorded Concern Status LastModified by Organization Details LastModified Time None Recorded Advance Directives Directive N: Payers Insurance Date Sequence Insurance Name Policy Number Policy Castellon Covered Member ID Castellon Member ID Guarantor Name 07/07/2022 1 [facility] (MEDICAID HMO) [id number] 03 Anette Mccall [id number] Anette Mccall 07/07/2022 2 [employer] [id number] Tammie Sawyerallen [id number] Anette Mccall 07/15/2022 [employer] [id number] Tammie Sawyerallen [id number] Anette Mccall 07/15/2022 [employer] [id number] Tammie Sawyerallen [id number] Anette Mccall 09/04/2023 [facility] Anette Mccall SELF SELF Anette Mccall 07/09/2022 2 [facility] (O) [id number] Anette Mccall [id number] Anette Mccall 09/21/2024 2 [place] [facility] EM[facility] DEPARTMENT OF PUBLIC AID Anette Mccall [id number] Anette Mccall 09/19/[address] [facility] [id number] Tammie Sawyerallen [id number] Anette Mccall Notes Date Note Type Note Provider Name and Address Organization Details Recorded Time 1 text/html Anxiety, Generalized DisorderReported bypatient.Associated Symptoms:no difficulty concentrating; no difficulty controlling worry; no difficulty swallowing; no anxiety; no excessive sweating; no hot flashes; no palpitations; no shortness of breath; no nausea; no diarrhea; no fatigue; no irritability; no muscle tension; no muscle aches; no trembling; no twitching; no headaches; no restlessness; no sleep disturbancesGeneric HPI TemplateReported bypatient.Notes:Pt is here today for her annual wellness examNauseaReported bypatient.Quality:frequen t Severity:mild Durationpresent for 1-6 months Onset/Timing:occasional Alleviating factors:nothing helps Associated Symptoms:abdominal pain;vomiting;fatigue;guille ght lossNotes:no menstrual cycle since september. not taking any contraception. Not Available [facility] [employer] 03/15/2021 22:43:38 2 text/html Anxiety, Generalized DisorderReported bypatient.Associated Symptoms:no difficulty concentrating; no difficulty controlling worry; no difficulty swallowing; no anxiety; no excessive sweating; no hot flashes; no palpitations; no shortness of breath; no nausea; no diarrhea; no fatigue; no irritability; no muscle tension; no muscle aches; no trembling; no twitching; no headaches; no restlessness; no sleep disturbancesGeneric HPI TemplateReported bypatient.Notes:Pt is here today for her annual wellness exam, abnormal pap smear 01/04/22, gave in 07/09complains of nausea/vomiting x 1 week, diarrhea, states she thinks it might be post nasal drip Not Available [employer] 02/17/2022 15:20:11 2 text/html Anxiety/DepressionReporte d bypatient.Quality:mood worse;increased anxiety;panic symptoms; doesnt matter time of day. Severity:no desire to continue living(2 months ago);unable to maintain relationships;interferenc e with sleep Duration:symptoms lasting over 2 weeks Onset/Timing:still present Context:major life stressors Modifying Factors:not on anything right now. Talking to a therapist since last week. Associated Symptoms:denies homicidal ideations; no significant weight gain; no delusions; no crying spells; no panic; no isolation; appetite good; energy good; no apathy; maintaining functionality;emotional lability;high irritability;hostility;an xiety;depression;insomnia ;hallucinations;restlessn ess/agitation;sleep disturbances;anxiety with muscle tension;feeling guilty;low self-esteem;social withdrawal;diarrhea;palpi tations;trembling or shaking (tremor);shortness of breath;poor concentration Not Available [employer] 04/17/2022 10:31:26 3 text/html Anxiety/DepressionReporte d bypatient.Notes:hx of bipolar disorder but therapist is concerned she may have borderline personality. pt is on lamictal at this time and does feel thre is some improvement but her social circumstances are challenging and do cause erratic mood fluctuations.Back PainReported bypatient.Location:pain radiating to the legs; mid and lower back Quality:sharp;dull Severity:worsening;pain level 6/10;moderate (5-7);interference with sleep Duration:acute; intermittent Onset/Timinweeks ago Context:unknown Alleviating Factors:walking Aggravating Factors:sitting or laying Associated Symptoms:no fever; no weak limbs; no numbness of the legs/feet;numbness of the legs/feet;tingling;incont inence;shortness of breath SAMMY Suh [address], [address] [place] [address], [employer] 07/15/2022 10:03:52 3 text/html DizzinessReported bypatient.Quality:cannot identify Duration:intermittent episodes lasting:; lasts 5-60 minutes Onset/Timing:actual date of onset: (1week) Context:smoker;allergies Modifying Factors:doesnt matter just when she has done to much. Associated Symptoms:no blurred vision; no foggy vision; no blindness; no spots in field of vision; no difficulty understanding speech; no ear discharge; no ringing in the ears; no pressure in ears; no noise in the ears; no feelings of fullness in the ears; no earache; no anxiety or unsteady feelings; no syncope; no loss of consciousness; no headache; no head pressure; no weak limbs; no facial numbness; no difficulty with speech; no dysphagia; no tingling around the mouth; normal stools;eye pain(behind both eyes);loss of hearing(tunnel hearing);unsteadiness;he adache;head pressure;nausea;vomiting; tingling around the mouth; headache Medical History:no ER visits due to dizzinessObstructive Sleep ApneaReported bypatient.Severity:modera te Timing:recurrent Duration:months Context:observed apnea; mood disorder Aggravating Factors:fatigue; sleep disruption Associated Symptoms:daytime sleepiness;witnessed apnea;mouth breathing;poor concentration;irritabilit y SAMMY Suh [address] [address], [place], [address], [employer] 01/11/2023 19:13:18 OBGyn Episode No OBEpisode recorded.
--- OUTSIDE RECORDS SUMMARY | 2024-09-30 09:05 | XMS_ITS | Clinical Summary ---
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 Refer to psychology for counseling 2. Dr. Olguin to call for update in 2 weeks. Viral syndrome 06/23/2011 11/05/2011 Overview (06/23/2011): Less than 48 hours of fever and malaise. Rapid flu negative. Mom to continue supportive care - encourage fluids, tylenol/ibuprofen for pain and fever. May take 7-10 days before resolution. Acute pharyngitis 06/19/2010 11/05/2011 Overview (03/27/2011): Suspect allergic component contributing to postnasal drip and pharyngeal irritation. No tonsillar erythema or exudate. - Zyrtec 10 mg daily - Flonase BID - RTC in 2 weeks to evaluate for improvement of symptoms Epistaxis 05/08/2010 11/05/2011 Overview (05/08/2010): Assessment: 9 y/o with 1 month hx of epistaxis on right side occurring now 3x a week and self resolving after 10 min Plan: Continue supportive care measures Gave referral for ENT for cauterization if bleeding continues Stress fracture of foot 09/06/200909/18 Overview (09/11/2014): Left foot pain 09/05/2009 2009 Overview (09/05/2009): Obtaining x-ray of L foot, will call mom with results Immunizations Immunization Administration Dates Next Due DTaP VACCINE IM (6wk-6yrs) 07/24/2006,,02/10/2000, 9,1998 HEP A PEDS 2 DOSE 05/06/2006,10/22/2005 HEP B VACCINE, PED/ADOL 02/10/2000,07/11/1999, HIB BOOSTER 02/10/2000, 9,02/18/1999, 9 Human Papilloma Virus Vaccine 11/13/2010 ,01/02/2010,10/24/2009, 0 INFLUENZA VACCINE 03/22/2008 TWIN VACCINE QUAD LAIV4 PF NASAL 01/12/2013 MENINGOCOCCAL ACWY (MCV4P) VAC IM 02/07/2015,10/2009,2009 MMR 05/24/2003,10/07/1999 POLIO IPV 08/25/2003, 0,02/18/1999, 9 TDAP (7yrs+) 10/24/2009,2009 VARICELLA 07/24/2006,10/07/1999 Family History Medical History Relation Name Comments Blood Clots Maternal Grandmother after k nee surgery Diabetes Maternal Grandmother Diabetes Mother Relation Name Status Comments Maternal Grandmother Mother Social History Tobacco Use Types Packs/Day Years Used Date Smoking Tobacco: Every Day Cigarettes Smokeless Tobacco: Never Tobacco Cessation:Ready to Q uit: Not Asked; Counseling Given: Not Answered Alcohol Use Standard Drinks/Week Comments Not Currently 0 (1 standard drink = 0.6 oz pur e alcohol) AUDIT-C Answer Date Recorded Q1: How often do you have a drink containing alcohol? Never 11/20/2021 Q2: How many drinks containi ng alcohol do you have on a typical day when you are drinking? Patient does not drink Q3: How often do you have si x or more drinks on one occasion? 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 Gender Identity Not on file Sexual Orientation Not on file Last Filed Vital Signs Vital Sign Reading Time Taken Comments Blood Pressure 113/74 11/20/2021 12:15 PM CDT Pulse 82 11/20/2021 12:15 PM CDT Temperature 36.7 C (98.1 F) 11/20/2021 12:04 PM CDT Respiratory Rate 16 11/20/2021 12:15 PM CDT Oxygen Saturation 96% 11/20/2021 12:15 PM CDT Inhaled Oxygen Concentration - - Weight 77.1 kg (170 lb) 07/10/2022 11:12 AM CDT Height 154.9 cm (5' 1) 07/10/2022 11:12 AM CDT Body Mass Index 32.12 07/10/2022 11:12 AM CDT Plan of Treatment Health Maintenance Due Date Last Done Comments HEPATITIS C SCREENING 09/29/2016 CHLAMYDIA/GONORRHEA SCREENING 08/13/2017 08/13/2016, 07/29/2016 PNEUMOCOCCAL VACCINE (1 of 2 - PCV) 2017 PAP SMEAR 10/05/2019 DTAP/TDAP/TD VACCINES (7 - Td or Tdap) 10/25/2019 10/24/2009, 2009, 07/24/2006, Additional history exists COVID-19 VACCINE (1 - season) 2023 DEPRESSION SCREENING 04/20/2024 09/16/2016, 08/13/2016, 07/29/2016, Additional history exists INFLUENZA VACCINE (Season Ended) 2024 01/12/2013, 03/22/2008 ZOSTER VACCINE (1 of 2) 2048 HEPATITIS B VACCINE Completed 02/10/2000, 07/11/1999, 04/10/1999 HIB VACCINE Completed 02/10/2000, 03/21, 02/18/1999, Additional history exists HPV VACCINE Completed 11/13/2010, 12/19, 10/24/2009, Additional history exists MENINGOCOCCAL GROUPS A/C/Y/W VACCINE Completed 02/07/2015, 10/24/2009, 2009 HIV SCREENING Completed 07/29/2016 MENINGOCOCCAL (Group B) VACCINE SHARED DECISION-MAKING Aged Out No longer eligible based on patient's age to complete this topic Medical Devices Implanted Type Area Drilling Field Professional Device Identifier Shelf Expiration Date Model / Serial / Lot 4.5mm X 50 Can Screw Implanted:Qty: 1 on 11/20/2021 by Aram Martinez MD at [facility] Right: [employer] [id number] / / 4.5mm X 65 Screw Implanted:Qty: 1 on 11/20/2021 by Aram Martinez MD at [facility] Right: [employer] [id number] / / Procedures Procedure Name Priority Date/Time Associated Diagnosis Comments CHLAMYDIA + GC AMPLIFIED PROBE Routine 08/13/2016 4:35 PM CDT Abdominal pain, right lower quadrant HIV-1 HIV-2 ANTIBODY + HIV P24 AG PANEL Routine 07/29/2016 3:07 PM CDT High risk heterosexual behavior from Last 3 Months or Most Recently Relevant to Health Maintenance Results * CHLAMYDIA + GC AMPLIFIED PROBE (08/13/2016 4:35 PM CDT) Chlamydia Amplified Probe Negative Negative 08/14/2016 10:42 AM CDT [facility] GC Amplified Probe Negative Negative 08/14/2016 10:42 AM CDT [facility] Microbiology URINE / Unknown Collection / Unknown 08/13/2016 4:35 PM CDT 08/13/2016 4:35 PM CDT Narrative [facility] - 08/14/2016 10:42 AM CDT This test was developed and its performance characteristics determined by the [facility], [facility]. Female urine specimens tested by the [facility] have not been cleared or approved by the U.S. Food and Drug Administration (FDA). The laboratory is regulated under the Clinical Laboratory Improvement Amendments (CLIA) as qualified to perform high-complexity testing. This test is used for clinical purposes. It should not be regarded as investigational or for research. Results based on detection/no detection of ribosomal RNA by amplified method. us Trang Leigh MD LAB - MICROBIOLOGY ORDERABLE S Final Result [facility] [address] [place] [address], [facility] [phone] * HIV-1 HIV-2 ANTIBODY + HIV P24 AG PANEL (07/29/2016 3:07 PM CDT) Pathologist [facility] HIV1/2 Ab + P24 Ag Non Reactive Non Reactive 07/29/2016 6:15 PM CDT [facility] Blood BLOOD SPECIMEN / Unknown Lab Venipuncture / Unknown 07/29/2016 3:07 PM CDT 07/29/2016 5:07 PM CDT Narrative [facility] - 07/29/2016 6:15 PM CDT No Laboratory evidence of HIV infection. 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
--- OUTSIDE RECORDS SUMMARY | 2024-09-30 09:05 | XMS_ITS | Clinical Summary ---
Author Organization [facility] Health Address [address] [place] [address] Care Team Providers Care Histology Technician Name Role Phone Unavailable Primary Care Provider Unavailabl e Allergies No known active allergies Medications benzonatate (TESSALON) 100 mg capsule TAKE 1 CAPSULE BY MOUTH EVERY 8 HOURS NEEDED 08/23/2021 Active escitalopram (LEXAPRO) 20 mg tablet Take 20 mg by mouth 1 (one) time each day. 08/23/2021 Active ibuprofen (ADVIL,MOTRIN) 600 mg tablet TAKE 1 TABLET BY MOUTH EVERY 6 HOURS NEEDED WITH FOOD 08/23/2021 Active methylPREDNISol one (MEDROL DOSPAK) 4 mg tablet TAKE BY MOUTH DIRECTED ON INSIDE OF PACKAGE 08/23/2021 Active metoclopramide (REGLAN) 10 mg tablet Take 10 mg by mouth every 6 (six) hours. 08/22/2021 Active Lo Loestrin Fe 1 mg-10 mcg (24)/10 mcg (2) tablet Take 1 tablet by mouth 1 (one) time each day. 09/19/2021 Active oseltamivir (TAMIFLU) 75 mg capsule TAKE 1 CAPSULE BY MOUTH EVERY 12 HOURS FOR 5 DAYS 08/23/2021 Active fluoride, sodium, (PreviDent 5000 Plus) 1.1 % cream Apply to teeth daily. 71 g 1 10/17/2021 Active ibuprofen (ADVIL,MOTRIN) 600 mg tablet Take 1 tablet (600 mg total) by mouth every 6 (six) hours if needed for mild pain. 20 tablet 10/23/2021 Active Active Problems Problem Noted Date Diagnosed Date Chest pain 08/13/2016 Overview (10/17/2021): Referred to GI department, referal in [facility] Last Assessment & Plan: Assessment: Patient with persistent abdominal pain x [...] appendix but I'm not finding that in [facility]. My concerns are some degree of colitis with the stools that have now progressed to bloody vs ovarian pathology (especially as she is having associated vomiting). Plan: -Referral to ER for further workup as no imaging available here Last Assessment & Plan: Assessment: Patient with chest pain associated with vomiting and persistent cough. She is also having myalgias, arthralgias, and headaches. Initial concern was for pericarditis, however pain reproducible and no friction rub. More likely musculoskeletal vs pleuritis given persistent cough and possible viral infection. Plan: -Referred to ER Acne 11/13/2010 Overview (10/17/2021): Anette continues to have mild acne, though does not seem bothered by the presence of lesions. Plan: - recommended mom use her home Differin for one wk, or until lesions improve Last Assessment & Plan: 14 yo with moderate inflamm acne with some improvement with benzoyl/retinoid combo product - Benzaclin daily for acne - Will follow up in 1 month Immunizations Immunization Administration Dates Next Due DTaP 07/24/2006, 4,02/10/2000,04/10,1998 HPV, unspecified 11/13/2010, 0,10/24/2009,04/20 Hep B, adolescent or pediatric 02/10/2000,1999,04/10/1999 Hepatitis A, ped/adol, 2 dose 05/06/2006, 006 Hib (PRP-D) 02/10/2000, 9,02/18/1999,12/31 IPV 08/25/2003, 0,02/18/1999,12/31 Influenza, live, intranasal, quadrivalent 01/12/2013 Influenza, unspecified 03/22/2008 MMR 05/24/2003,10/07/1999 Meningococcal MCV4P 02/07/2015,10/24/2009,2009 Tdap 10/24/2009,2009 Varicella 07/24/2006,10/07/1999 Social History Tobacco Use Types Packs/Day Years Used Date Smoking Tobacco: Every Day Cigarettes 0.5 6 Started: 2018 Tobacco Cessation:Ready to Q uit: Not Asked; Counseling Given: Not Answered Alcohol Use Standard Drinks/Week Comments Never 0 (1 standard drink = 0.6 oz pur e alcohol) Comments Unknown Sex and Gender Information Value Date Recorded Sex Assigned at Not on file Legal Sex Female 1:23 AM PST Gender Identity Not on file Sexual Orientation Not on file Last Filed Vital Signs Vital Sign Reading Time Taken Comments Blood Pressure 109/80 10/17/2021 11:25 AM CDT Pulse 87 10/17/2021 11:25 AM CDT Temperature - - Respiratory Rate - - Oxygen Saturation - - Inhaled Oxygen Concentration - - Weight - - Height - - Body Mass Index - - Plan of Treatment Health Maintenance Due Date Last Done Comments Dental Prophylaxis 12/20/2016 06/18/2016 Dental Oral Exam 04/19/2022 10/17/2021, 06/18/2016 Dental X-Ray: Bitewings 04/19/2022 10/17/2021 Dental X-Ray: Full Mouth 10/18/2024 10/17/2021, 04/2016 Dental X-Ray: Panoramic 10/18/2024 10/17/2021 Meningococcal B Vaccine Aged Out No l onger eligible based on patient's age to complete this topic Procedures Procedure Name Priority Date/Time Associated Diagnosis Comments PANORAMIC RADIOGRAPHIC IMAGE Routine 10/17/2021 11:00 AM CDT INTRAORAL - COMPREHENSIVE SERIES OF RADIOGRAPHIC IMAGES Routine 10/17/2021 11:00 AM CDT COMPREHENSIVE ORAL EVALUATION - NEW OR ESTABLISHED PATIENT Routine 10/17/2021 11:00 AM CDT PROPHYLAXIS - ADULT Routine 06/18/2016 2 :00 AM CIRCULAR STUFFER from Last 3 Months or Most Recently Relevant to Health Maintenance Insurance
--- OUTSIDE RECORDS SUMMARY | 2024-09-30 09:06 | XMS_ITS | Data Portability ---
Author Organization [facility] Address [address] [place] [address] Care Team Providers Care Channel Rougher Name Role Phone JAMEL ARRIETA Primary Care Provider Unavailab le Assessment No assessment recorded. Plan of Treatment Reminders Order Date Submit Date Provider Last Modified By Organization Details Last Modified Time Details Appointments None recorded. Lab CMP, serum or plasma [facility]23 [facility]24 [facility], [address], [place], [address], 5 10:34:25 CBC w/ auto diff 2023 024 [facility], [address], [place], [address], 5 10:34:25 vitamin B12 + folate, serum or blood 2023 024 [email or web address] [facility], [address], [place], [address], 5 14:43:13 TSH + free T4, serum 2023 024 [facility], [address], [place], [address], 5 10:34:26 lipid panel, serum 2023 024 [facility], [address], [place], [address], 5 10:34:26 HbA1c (hemoglobi n A1c), blood 2023 024 [email or web address], [address], [place], [address], 5 10:34:26 Referral None recorded. Procedures None recorded. Surgeries None recorded. Imaging XR, cervical spine, 2 or 3 view 2023 024 [facility] (Imaging), [address] [facility], [place], [address], 5 09:58:57 MRI, brain, w/wo contrast 2023 024 [facility] (Imaging), [address], [place], [address], 5 14:19:04 Medication Orders methocarba mol 750 mg tablet 2023 024 [facility]/Pharmacy #[id number], [address], [place], [address], 15:52:20 Patient TargetsNo targets recorded. Patient Instructions Encounter Date Encounter Id Patient Instructions Last Modified By Organization Details Last Modified Time 02/19/2024 [id number] Quitting Tobacco : Care Instructions Not available 03/06/2024 18:15:37 A healthy lifestyle: care instructions Not available 02/19/2024 15:52:18 Reason for Referral None Reported. Problems Name Problem SNOMED Code Status Onset Date Resolution Date Notes Provider Name and Address Organization Details Recorded Time Body mass index 30+ - obesity 493230993 Active 2023 Amol Haq MA [facility], [place] - [facility] 4 15:24:59 Smoker 13876871 Active 2023 SAMMY Suh Attn: Jak dykes,[address], [place], [address] , [facility] - [facility] 4 18:15:39 Long-term drug therapy Active 2023 SAMMY Suh Attn: Rennyazeb dykes,[address] [place], [address], [facility] - [facility] 4 18:15:40 Obesity 948234727 Active 2023 SAMMY Suh Attn: Rennyazeb dykes,[address] [place], [address], [facility] - [facility] 4 18:15:44 Indigestion 662362197 Active 2023 SAMMY Suh Attn: Rennyazeb dykes,[address] [place], [address], [facility] - [facility] 4 18:15:46 Upper abdominal pain 28252521 Active 2023 SAMMY Suh Attn: Jak donis,[address] [place], [address], [facility] - [facility] 4 18:15:47 Daily headache 795633281543 Active 2023 SAMMY Suh Attn: Rennyazeb dykes,[address] [place], [address], [facility] - [facility] 4 18:15:48 Neck pain 26684947 Active 2023 SAMMY Suh Attn: Jak donis,[address] [place], [address], [facility] - [facility] 4 18:15:50 Positive screening for depression on PHQ-9 (Patient Health Questionnai re 9) 1517670042774 00 Active 2023 SAMMY Suh Attn: Rennyazeb dykes,[address] [place], [address], [facility] - [facility] 4 18:17:47 Problem Notes None recorded. Procedures Surgical History Date Name Laterality Status Provider Name and Address Organization Details Recorded Time 8 Apicoectomy - anterior completed Amol Haq [place] - [facility] 02/19/2024 15:31:52 screening procedure completed RADHA Ruvalcaba - [facility] 02/19/2024 15:30:37 Imaging Results None recorded. Procedure Notes None recorded. Medical Equipment None Reported. Allergies No known drug allergies Medications Name Sig Start Date Stop Date Status Note LastModified by Organization Details LastModified Time quetiapine 25 mg tablet Take 1 tablet twice a day by oral route. active Not Available Not Available No t Available amoxicillin 500 mg capsule TAKE 1 CAPSULE BY MOUTH 3 TIMES A DAY UNTIL GONE * NOT ENROLLED IN STATE MEDICAID* 09/15 completed Not Available Not Available Not Available clindamycin HCl 300 mg capsule TAKE 1 CAPSULE BY MOUTH EVERY 6 HOURS 09/15 completed Not Available Not Available Not Available ibuprofen 800 mg tablet TAKE 1 TABLET BY MOUTH EVERY 6 HOURS NEEDED active Not Available Not Available No t Available fluconazole 150 mg tablet TAKE 1 TABLET BY MOUTH EVERY DAY FOR 3 DAYS 09/15 completed Not Available Not Available Not Available quetiapine 200 mg tablet TAKE 1 TABLET BY MOUTH EVERY DAY AT BEDTIME FOR 30 DAYS active Not Available Not Available No t Available quetiapine 100 mg tablet Take 1 tablet twice a day by oral route. 02/18 completed Not Available Not Available Not Available amoxicillin 875 mg tablet TAKE 1 TABLET BY MOUTH EVERY 12 HOURS UNTIL GONE 09/15 completed Not Available Not Available Not Available methocarbam ol 750 mg tablet TAKE 1 TABLET BY MOUTH EVERYDAY AT BEDTIME active Not Available Not Available No t Available sertraline 25 mg tablet Take 1 tablet every day by oral route. active Not Available Not Available No t Available sertraline 50 mg tablet TAKE 1 AND 1/2 (ONE AND ONE-HALF) TABLETS BY MOUTH ONCE DAILY FOR 30 DAYS active Not Available Not Available No t Available amoxicillin 875 mg-potassiu m clavulanate 125 mg tablet TAKE 1 TABLET BY MOUTH EVERY 12 HOURS 09/15 completed Not Available Not Available Not Available quetiapine 50 mg tablet TAKE 1 TABLET BY MOUTH EVERY DAY IN THE MORNING active Not Available Not Available No t Available [place] 02/18 completed Not Available Not Available Not Available Vitals Date Recorded Systolic blood pressure Diastolic blood pressure Provider Name and Address Organization Details Last Updated DateTime 02/19/2024 120 mm[Hg] 70 mm[Hg] SAMMY Suh Attn: Accounting,[address] [facility], [place], [address], [facility] 02/19/2024 15:48:16 Date Recorded Body weight Respiratory rate Body mass index (BMI) Body height Oxygen saturation Oxygen saturation in Arterial blood by Pulse oximetry Heart rate Provider Name and Address Organization Details Last Updated DateTime 4 81391.1 4 g 20 /min 34.9 kg/m2 157.48 cm 98 % 98 % 92 /min Amol Haq MA [facility] 15:32:03 Social History Question Answer Notes LastModified by Organizat ion Details LastModified Time Tobacco Smoking Status Current Every Day Smoker Amol Haq MA null, [facility] 02/19/2024 16:14:58 Do You Have An Advance Directive? No Information not available 02/19/2024 Are You Blind Or Do You Have Difficulty Seeing? No Glasses Information not available 02/19/2024 What Is Your Level Of Caffeine Consumption? Moderate Information not available 02/19/2024 In The 14 Days Before Symptom Onset, Have You Had Close Contact With A Laboratory-confir med COVID-19 While That Case Was Ill? No Information not available 02/19/2024 In The 14 Days Before Symptom Onset, Have You Had Close Contact With A Person Who Is Under Investigation For COVID-19 While That Person Was Ill? No Information not available 02/19/2024 Have You Been To An Area Known To Be High Risk For COVID-19? No Information not available 02/19/2024 Are You Deaf Or Do You Have Serious Difficulty Hearing? No Information not available 02/19/2024 What Type Of Diet Are You Following? REGULAR Information not available 02/19/2024 Are There Any Guns Present In Your Home? No Information not available 02/19/2024 What Was The Date Of Your Most Recent Tobacco Screening? 02/19/2024 Information not available 02/19/2024 What Is Your Current Pack Years? 10-19packyea rs Information not available 02/19/2024 Do You Use Your Seat Belt Or Car Seat Routinely? Yes Information not available 02/19/2024 Do You Have Smoke And Carbon Monoxide Detectors In Your Home? Yes Information not available 02/19/2024 How Much Tobacco Do You Smoke? 0.5 PPD Information not available 02/19/2024 Do You Use Sunscreen Routinely? No Information not available 02/19/2024 Has Tobacco Cessation Counseling Been Provided? Yes Information not available 02/19/2024 On What Date Was Tobacco Cessation Counseling Provided? 02/19/2024 Information not available 02/19/2024 Sex: Female Functional Status Question Answer Note LastModified by Organizat ion Details LastModified Time Do you use any illicit or recreational drugs? No Information not available 02/19/2024 Do you or have you ever used any other forms of tobacco or nicotine? No Information not available 02/19/2024 What is your level of alcohol consumption? None Information not available 02/19/2024 Are you currently employed? No Information not available 02/19/2024 Are you able to care for yourself? Yes Information not available 02/19/2024 What is your exercise level? None Information not available 02/19/2024 Mental Status Question Answer Note LastModified by Organization D etails LastModified Time Do you feel stressed (tense, restless, nervous, or anxious, or unable to sleep at night)? VM6531-5 Information not available 02/19/2024 Family History Relationship Description Onset Age of this Age Resolved Age Notes LastModified by Organization Details LastModified Time Unspecified Relation Asthma tcarterma Not available 024 15:20:12 Sister Attention deficit hyperactivit y disorder tcarterma Not available 02/18 15:20:16 Sister Depressive disorder tcarterma Not available 2023 15:21:56 Maternal Grandmother Family history of breast cancer tcarterma Not available 2023 15:20:31 Maternal Grandmother Coronary arterioscler osis tcarterma Not available 2023 15:20:45 Maternal Grandmother Diabetes mellitus tcarterma Not available 2023 15:21:08 Maternal Grandmother Depressive disorder tcarterma Not available 2023 15:21:36 Maternal Grandmother Heart disease tcarterma Not available 2023 15:22:20 Maternal Grandmother Migraine tcarterma Not available 04/2023 15:23:01 Maternal Grandmother Myocardial infarction tcarterma Not available 02/18 15:23:24 Maternal Grandfather Coronary arterioscler osis tcarterma Not available 2023 15:20:45 Maternal Grandfather Diabetes mellitus tcarterma Not available 2023 15:21:08 Maternal Grandfather Heart disease tcarterma Not available 2023 15:22:20 Maternal Grandfather Myocardial infarction tcarterma Not available 02/18 15:23:24 Paternal Aunt Depressive disorder tcarterma Not available 2023 15:22:02 Mother Diabetes mellitus tcarterma Not available 2023 15:21:08 Mother Depressive disorder tcarterma Not available 2023 15:21:33 Mother Hypertensive disorder tcarterma Not available 2023 15:22:26 Mother Hypercholest erolemia tcarterma Not available 2023 15:22:38 Mother Migraine tcarterma Not availabl e 02/19/2024 15:23:01 Paternal Grandmother Dementia tcarterma Not available 04/2023 15:21:16 Maternal Uncle Depressive disorder tcarterma Not available 2023 15:21:44 Father Hypercholest erolemia tcarterma Not available 2023 15:22:38 Medical History Condition Response Coronary Artery Disease N Other N Atrial Fibrillation N High Blood Pressure N Depression Y COPD N Blood Clots N Anxiety Disorder Y Muscle, Joint, or Bone Problems N Acid Reflux (GERD) Y Cancer N Stroke N High Cholesterol N Liver Disease N Headaches Y Kidney or Bladder Problems N Thyroid Problems N GI Problems N Have you had a mammogram in the last yea r? N Skin Problems N Anemia N Heart Attack ([place]) N Diabetes N Seizures/Epilepsy N Have you had a colonoscopy in the last 1 0 years? N Asthma N Allergies N Have you had a PSA blood test in the las t year? N Hepatitis N Heart Failure N Osteoporosis N Gynecological History Statement/Question Response Menses Monthly N Current Control Method Implant Obstetrics History GPAL:G 1 P 0 0 0 1 Type Value Full Term 0 Induced 0 Premature 0 Living 1 Total 1 Immunizations Vaccine Type Date Status Note Provider Nam e and Address Organization Details Recorded Time Hib, unspecified formulation 0 completed RADHA Ru[place], [place] [facility] 02/19/2024 15:11:09 IPV 9 [place] RAD[place] [facility] 02/19/2024 15:11:09 IPV 0 [place] RAD[place] [facility] 02/19/2024 15:11:09 IPV 9 completed RADHA [place] [facility] 02/19/2024 15:11:09 Influenza, live, trivalent, intranasal 8 completed RADHA [place] [facility] 02/19/2024 15:11:09 MMR 4 [place] RAD[place] [facility] 02/19/2024 15:11:09 MMR 0 [place] RADHA [place] [facility] 02/19/2024 15:11:09 Tdap 7 completed RADHA [place] [facility] 02/19/2024 15:11:09 varicella 7 completed RAD[place] [facility] 02/19/2024 15:11:09 varicella 0 completed RADHA [place] [facility] 02/19/2024 15:11:09 DTP-Hib 9 completed RADHA [place] [facility] 02/19/2024 15:11:09 DTP-Hib 9 tl Haq [place] [facility] 02/19/2024 15:11:09 DTP-Hib 9 completed Amol Ha[place] [facility] 02/19/2024 15:11:09 Hep B, adolescent or pediatric 0 completed Amol [place] [facility] 02/19/2024 15:11:09 Hep B, adolescent or pediatric 0 completed Amol [place] [facility] 02/19/2024 15:11:09 Hep B, adolescent or pediatric 9 completed Amol [place] [facility] 02/19/2024 15:11:09 Hep A, ped/adol, 2 dose 7 completed Amol [place] [facility] 02/19/2024 15:11:09 Hep A, ped/adol, 2 dose 6 completed Amol [place] [facility] 02/19/2024 15:11:09 meningococcal MCV4P 5 completed Amol [place] [facility] 02/19/2024 15:11:09 DTaP 4 completed Amol [place] [facility] 02/19/2024 15:11:09 DTaP 9 completed Amol [place] [facility] 02/19/2024 15:11:09 DTaP 0 completed Amol [place] [facility] 02/19/2024 15:11:09 DTaP 9 completed Amol [place] [facility] 02/19/2024 15:11:09 DTaP 9 completed Amol [place] [facility] 02/19/2024 15:11:09 Influenza, live, quadrivalent, intranasal 3 completed Amol Ha[place] [facility] 02/19/2024 15:11:09 Past Encounters Encounter ID Performer Location Encounter Start Date Encounter Closed Date Diagnosis/Indication Diagnosis SNOMED-CT Code Diagnosis ICD10 Code Diagnosis Note [id number] Reece Martini MD [facility] e - Gautam Carpenter [address] [place] [address] 02/19/2024 15:06:37 02/19/2024 16:18:43 Body mass index 30+ - obesity 453951576 Z68.34 BMI is 34.9 Obesity 167358789 E66.9 discussed healthy diet, exercise, controllin g carbohydra neymar and added sugars in the diet Neck pain 20300924 M54.2 Check x-ray of C-spine and start methocarba mol at bedtime Daily headache 117910710 1 03 R51.9 Check MRI of the brain with and without contrast for new daily persistent headache Upper abdominal pain 831 89369 R10.10 This is a chronic situation that has been evaluated with diagnostic testing in the past. Patient may take over-the-c ounter antacid at this time Indigestion 496496296 K3 0 Start over-the-c ounter antacid at this time and evaluate dietary triggers. Cholesterol screening 27 5160103 Z13.220 Fasting lipid panel ordered Diabetes m ellitus screening 785885150 Z13.1 Annual diabetes screening ordered Long-term drug therapy 774815757 Z79.891 cmp, cbc and b12, folate and thyroid labs are due Smoker 33994296 F17.200 . Positive s creening for depression on PHQ-9 (Patient Health Questionnaire 9) 9596594087 16568 Z13.31 Patient scored a 12 on screening today. And is being seen by psychiatry nurse practition er. She is taking quetiapine and sertraline therapy Health Concerns Section Related Observation LastModified by Organization Detai ls LastModified Time None Recorded Concern Status LastModified by Organization Details LastModified Time None Recorded Advance Directives Directive N: Payers Insurance Date Sequence Insurance Name Policy Number Policy Castellon Covered Member ID Castellon Member ID Guarantor Name 03/10/2024 1 [facility] [id number] Tammie Sawyerallen [id number] Anette Mccall 03/10/2024 2 [place] [employer] Anette Mccall [id number] Anette Mccall Notes Date Note Type Note Provider Name and Address Organization Details Recorded Time 02/19/20 24 text/htm l Abdominal PainReported bypatient.Location:LUQ; RUQ; epigastric Quality:pain;aching Severity:moderate Duration:intermittent Onset/Timing:wax/wane Context:food Modifying Factors:nothing gives relief Associated Symptoms:no fever; no chills; no blood in the urine; no shortness of breath;heartburn;nausea;vomit ing Other:denies possible pregnancyHeadacheReported bypatient.Location:bilateral; band around head Quality:not the worst headache ever; similar to previous headaches Severity:moderate Duration:constant Onset/Timing:worse Context:not related to trauma Alleviating factors:nothing gives reliefNeck PainReported bypatient.Trauma:no Neurological Complaints:none Pain:aching;worse with movement;worse with activity Pain Duration:months Treatment:NSAIDS SAMMY Suh Attn: Accounting,[address] [place] [address], [phone], [facility] 03/06/2024 18:18:11 OBGyn Episode No OBEpisode recorded.
== END 2024-09-30 08:58 | disposition home or self-care (01) ==
PROVIDERS: PCP Physician Assistant; Visit Provider Physician Assistant
DX: R51.9 Headache, unspecified (principal); M54.2 Cervicalgia
CPT/HCPCS: 70553; 72050; A9577

== ENCOUNTER 2024-12-05 11:39 | Emergency (ER) | payer MEDICAID, SELFPAY ==
--- NOTE | ~2024-12-05 | CT_ITS ---
EXAMINATION: CT lumbar spine wo con DATE: 12/05/2024 13:11 CDT INDICATION: Low back pain. Fall. TECHNIQUE: Computed tomography (CT) of the lumbar spine was performed without intravenous contrast. T he dose-length product was 915.31 mGy-cm. COMPARISON: None FINDINGS: Lumbar vertebral body heights are within normal limits. No compression fracture in the lumbar spine. No sporadically destructive bone lesion in the lumbar spine. 5 mm nonobstructing right renal stone. E valuation of the spinal canal contents and bilateral neural foramen is limited due to CT technique. Grade 1 anterolisthesis of L5 on S1. No pars defect. At the L4-L5 level, there is a small broad-based disc bulge causing mild narrowing of the spinal joshua l and mild narrowing of the bilateral neural foramen. At the L5-S1 level, there is a small to moderate-sized disc osteophyte complex causing mild narrowing of the spinal canal and moderate narrowing of the bilateral lateral recesses and bilateral neural fo ramen, worse on the left. IMPRESSION: 1. No compression fracture in the lumbar spine. 2. At the L5-S1 level, there is a small to moderate-sized disc osteophyte complex causing mild narrow ing of the spinal canal and moderate narrowing of the bilateral lateral recesses and bilateral neural foramen, worse on the left. 3. At the L4-L5 level, there is a small broad-based disc bulge causing mild narrowing of the spinal c anal and mild narrowing of the bilateral neural foramen. 4.Grade 1 anterolisthesis of L5 on S1. Reviewed, dictated and finalized at location A. IMPRESSION: 1. No compression fracture in the lumbar spine. 2. At the L5-S1 level, there is a small to moderate-sized disc osteophyte compl ex causing mild narrowing of the spinal canal and moderate narrowing of the sarah ateral lateral recesses and bilateral neural foramen, worse on the left. 3. At the L4-L5 level, there is a small broad-based disc bulge causing mild rogelio rowing of the spinal canal and mild narrowing of the bilateral neural foramen. 4.Grade 1 anterolisthesis of L5 on S1.
[2024-12-05 11:47] VITALS: BP 141/81; PULSE 114; RESP 20; TEMP 37.4; O2SAT 100
[2024-12-05 12:11] VITALS: RESP 18
--- NOTE | 2024-12-05 12:16 | ED.BACK ---
HPI - Back Pain/Injury General Chief Complaint: Back Pain/Injury Stated Complaint: fall- back injury Time Seen by Provider: 12/05/24 12:11 Source: patient Mode of arrival: ambulatory Limitations: no limitations History of Present Illness HPI Narrative: This is a 24-year-old female that presents emergency department for low back pain. Reports she slipped earlier this morning when she got up to go to the restroom. Reports she took Tylenol earlier this morning with little relief. Denies saddle anesthesia, bowel/bladder incontinence. No other focal injuries or areas of pain. Related Data Home Medications ?Medication ?Instructions ?Recorded ?Confirmed ?Last Taken ?Type escitalopram oxalate 10 mg tablet 10 mg PO DAILY nausea 06/13/21 06/13/21 Unknown History ferrous sulfate 325 mg (65 mg 325 mg PO DAILY 06/13/21 06/13/21 Unknown History iron) tablet (Iron (ferrous sulfate)) vit no.95-ferrous 1 tablet PO DAILY 06/13/21 06/13/21 Unknown History fumarate 28 mg-folic acid 800 mcg tablet () Allergies Allergy/AdvReac Type Severity Reaction Status Date / Time No Known Allergies Allergy Verified 12/05/24 12:13 Review of Systems Review of Systems: All systems reviewed & are unremarkable except as noted in HPI and below PMFSH Past Medical History Medical History (Updated 12/05/24 @ 14:39 by Amber Dumont PA-C) Anxiety Migraines STD (female) PTSD (post-traumatic stress disorder) Overweight (BMI 25.0-29.9) and not yet delivered Surgical History Surgical History (Updated 11/07/21 @ 14:41 by Karthik Leon) No pertinent past surgical history Family History Family History (System 11/07/21 @ 14:41 by Karthik Leon) Mother Diabetes mellitus Depression Sibling ADHD Social History Social History (System 11/07/21 @ 14:41 by Karthik Leno) Smoking status: Current every day smoker Second hand tobacco smoke exposure: Yes Substance use: former Spiritual care concerns: No Exam Narrative: GENERAL: Well-appearing, well-nourished, and in no acute distress. HEAD: Normocephalic, atraumatic. EYES: EOMI. CHEST: Clear to auscultation. No respiratory distress. No wheezes rales or rhonchi HEART: Regular rate and rhythm. No murmur heard. Normal peripheral pulses. BACK: Tender to palpation of the lower lumbar spine EXTREMITIES: Normal range of motion. No edema. Strength equal in bilateral lower extremities (5/5). Normal DP pulses SKIN: Warm, dry, no rash. NEURO: No focal deficits. Alert and oriented x3. PSYCH: Normal mood and affect Course Course Emergency Course: patient updated on workup and agrees with plan of care Vital Signs Vital signs: Vital Signs Temperature 99.3 F 12/05/24 11:47 Pulse Rate 114 H 12/05/24 11:47 Respiratory Rate 20 12/05/24 11:47 Blood Pressure 141/81 H 12/05/24 11:47 Pulse Oximetry 100 12/05/24 11:47 Temperature 99.3 F 12/05/24 11:47 Pulse Rate 94 12/05/24 14:48 Respiratory Rate 18 12/05/24 14:48 Blood Pressure 112/64 12/05/24 14:48 Pulse Oximetry 100 12/05/24 14:48 MDM - Back Pain/Injury MDM Narrative Medical decision making narrative: Patient presents emergency department for low back pain after a fall. She is neurologically intact. CT lumbar spine without acute osseous abnormalities. Does show bulging discs, narrowing of spinal canal at L4-5, L5-S1. Patient updated on her workup and agrees with plan of care. She is to follow up with primary provider. She was given warnings to return to the ER Differential Diagnosis Differential diagnosis: Likely lumbar radiculopathy and other (contusion, muscle strain) Lab Data Attestation: I reviewed the patient's lab results. Labs: Lab Results 12/05/24 Range/Units 12:47 POC Urine HCG, Qual Negative (Negative) Imaging Data Radiologist's impression: ITS Impressions Lumbar Spine CT 12/05/24 13:10 IMPRESSION: 1. No compression fracture in the lumbar spine. 2. At the L5-S1 level, there is a small to moderate-sized disc osteophyte complex causing mild narrowing of the spinal canal and moderate narrowing of the bilateral lateral recesses and bilateral neural foramen, worse on the left. 3. At the L4-L5 level, there is a small broad-based disc bulge causing mild narrowing of the spinal canal and mild narrowing of the bilateral neural foramen. 4.Grade 1 anterolisthesis of L5 on S1. Critical Care Time Critical Care Time Critical Care Time: No Discharge Plan Discharge Clinical Impression: Contusion Qualifiers: Encounter type: initial encounter Contusion area: lower back Qualified Code(s): S30.0XXA - Contusion of lower back and pelvis, initial encounter Patient Disposition: Home Condition: Stable Instructions: Acute Low Back Pain (ED) Additional Instructions: Return to the ER if you experience numbness in your groin, bowel/bladder incontinence, or any other symptoms that are concerning to you Rest. Ice to the area. Over the counter pain medication as needed. Lidocaine patch to the area of pain as needed Follow up with your primary doctor Patient Language: Lithuanian Prescriptions: New lidocaine 5 % adhesive patch,medicated 1 patch topical DAILY Qty: 15 0RF Rx Instructions: leave on most painful area for up to 12 hrs cyclobenzaprine 10 mg tablet 10 mg PO TID PRN (Reason: muscle spasm) Qty: 10 0RF No Action ferrous sulfate [Iron (ferrous sulfate)] 325 mg (65 mg iron) Tablet 325 mg PO DAILY PNV no.95-ferrous fumarate-FA [] 28 mg iron- 800 mcg Tablet 1 tablet PO DAILY escitalopram oxalate 10 mg Tablet 10 mg PO DAILY Follow-up/Referrals: Damari,GEENA Farris [Primary Care Provider] -
[2024-12-05] MEDS: ACETAMINOPHEN 500 MG TABLET 1000 MG PO (12:20)
[2024-12-05] MEDS: KETOROLAC 30 MG/ML VIAL (*BKC) IM (12:21)
[2024-12-05 12:49] LABS: BEDSIDEPREGUCG Negative (Negative)
--- OUTSIDE RECORDS SUMMARY | 2024-12-05 12:59 | XMS_ITS | Clinical Summary ---
Author Organization [facility] Health Address [address] [place] [address] Care Team Providers Care Red Cross Worker Name Role Phone Unavailable Primary Care Provider [...] (10/17/2021): Referred to GI department, referal in [facility] Last Assessment & Plan: Assessment: Patient with [...] appendix but I'm not finding that in [facility]. My concerns are some degree of colitis [...] Date Smoking Tobacco: Every Day Cigarettes 0.5 6.2 Started: 2018 Tobacco Cessation:Ready to Q uit: [...] 10/17/2021, 04/2016 Dental X-Ray: Panoramic 10/18/2024 10/17/2021 Procedures Procedure Name Priority Date/Time Associated Diagnosis Comments PANORAMIC RADIOGRAPHIC IMAGE Routine 10/17/2021 11:00 AM CDT INTRAORAL - COMPREHENSIVE SERIES OF RADIOGRAPHIC IMAGES Routine 10/17/2021 11:00 AM CDT COMPREHENSIVE ORAL EVALUATION - NEW OR ESTABLISHED PATIENT Routine 10/17/2021 11:00 AM CDT PROPHYLAXIS - ADULT Routine 06/18/2016 2 :00 AM ORACLE IAM CONSULTANT from Last 3 Months or Most Recently Relevant to Health Maintenance Insurance [facility] PPO
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
--- OUTSIDE RECORDS SUMMARY | 2024-12-05 12:59 | XMS_ITS | Patient Health Record ---
Author Organization [facility] [employer] [facility] Address [address] [facility] [address] [place] [address] Care Team Providers Care Multiple Tube Winding Machine Operator Name Role Phone Tal Mayers Unavailable [phone] Reason For Referral No Information Medications Medication SIG (Take, Route, Frequency, Duration) Notes Start Date End Date Status Sronyx 0.1-20 MG-MCG Oral 09/09/2018 Active hydrOXYzine HCl 50 MG Oral 09/09/2018 Active Zolpidem Tartrate 5 MG Oral 09/09/2018 Active Sulfamethoxazole-Trimethopri m 800-160 MG Oral 09/09/2018 Active metroNIDAZOLE 500 MG Oral 09/09/2018 Active Plan Of Treatment No Information Insurance Providers Payer Name Payer Address Payer Phone Subscriber Number Group Number Insured Name Patient Relationship to Insured Coverage Start Date Coverage End Date [facility] Ppo [address] [place] [address] [id number] MILDRED HERRERA Child - Insured has Financial Responsibility
--- OUTSIDE RECORDS SUMMARY | 2024-12-05 12:59 | XMS_ITS | Encounter Summary ---
Author Organization [facility] Health Address [address] [place] [address] Care Team Providers Care Dance Therapist Name Role Phone Unavailable Primary Care Provider Unavailabl e Prior Encounters Date Type Department Care Team Description 10/23/2021 Travel 10/23/2021 8:00 AM CDT Office Visit [facility] [address] [place] [address] AugustNicola DDS 10/17/2021 11:00 AM CDT Office Visit [facility] [address] [place] [address] Nicola Bhatia DDS 05/09/2019 Converted CPS Chart Documents [facility] [address] [phone] <No scans attached> 05/09/2019 Converted 13x Documents [facility] [address] [place] [address] [phone] <No scans attached> Last Filed Vital Signs [...] 13 ENDODONTIC THERAPY, PREMOLAR TOOTH (EXCLUDING FINAL GNOSTICIST) Routine 10/23/2021 8:00 AM CDT 13 CEMENT [...] AMALGAM 1 SURFACE Routine 06/18/2016 2:00 AM ADJUNCT PHYSICAL EDUCATION INSTRUCTOR 9 ENDODONTIC THERAPY, ANTERIOR TOOTH (EXCLUDING FINAL GNOSTICIST) Routine 06/18/2016 2:00 AM ADJUNCT PHYSICAL EDUCATION INSTRUCTOR COMPREHENSIVE ORAL EVALUATION - NEW OR ESTABLISHED PATIENT Routine 06/18/2016 2:00 AM ADJUNCT PHYSICAL EDUCATION INSTRUCTOR ORAL HYGIENE INSTRUCTIONS Routine 2016 2:00 AM ADJUNCT PHYSICAL EDUCATION INSTRUCTOR PROPHYLAXIS - ADULT Routine 06/18/2016 2 :00 AM ADJUNCT PHYSICAL EDUCATION INSTRUCTOR INTRAORAL - COMPREHENSIVE SERIES OF RADIOGRAPHIC IMAGES Routine 06/18/2016 2:00 AM ADJUNCT PHYSICAL EDUCATION INSTRUCTOR INTRAORAL PHOTO Routine 06/18/2016 2:00 AM ADJUNCT PHYSICAL EDUCATION INSTRUCTOR INTRAORAL PHOTO Routine 06/18/2016 2:00 AM ADJUNCT PHYSICAL EDUCATION INSTRUCTOR INTRAORAL PHOTO Routine 06/18/2016 2:00 AM ADJUNCT PHYSICAL EDUCATION INSTRUCTOR INTRAORAL PHOTO Routine 06/18/2016 2:00 AM ADJUNCT PHYSICAL EDUCATION INSTRUCTOR Visit Diagnoses Not on file Insurance
--- OUTSIDE RECORDS SUMMARY | 2024-12-05 13:22 | XMS_ITS | Encounter Summary ---
Author Organization [facility] Health Address [address] [place] [address] Care Team Providers Care Culinary Arts Instructor Name Role Phone Unavailable Primary Care Provider Unavailabl e Prior Encounters Date Type Department Care Team Description 10/23/2021 Travel 10/23/2021 8:00 AM CDT Office Visit [facility] [address] [place] [address] AugustNicola DDS 10/17/2021 11:00 AM CDT Office Visit [facility] [address] [place] [address] Nicola Bhatia DDS 05/09/2019 Converted CPS Chart Documents [facility] [address] [phone] <No scans attached> 05/09/2019 Converted 13x Documents [facility] [address] [place] [address] [phone] <No scans attached> Last Filed Vital Signs [...] AMALGAM 1 SURFACE Routine 06/18/2016 2:00 AM CLEAN RICE GRADER AND REEL TENDER 9 ENDODONTIC THERAPY, ANTERIOR TOOTH (EXCLUDING FINAL PENTECOSTALISM) Routine 06/18/2016 2:00 AM CLEAN RICE GRADER AND REEL TENDER COMPREHENSIVE ORAL EVALUATION - NEW OR ESTABLISHED PATIENT Routine 06/18/2016 2:00 AM CLEAN RICE GRADER AND REEL TENDER ORAL HYGIENE INSTRUCTIONS Routine 2016 2:00 AM CLEAN RICE GRADER AND REEL TENDER PROPHYLAXIS - ADULT Routine 06/18/2016 2 :00 AM CLEAN RICE GRADER AND REEL TENDER INTRAORAL - COMPREHENSIVE SERIES OF RADIOGRAPHIC IMAGES Routine 06/18/2016 2:00 AM CLEAN RICE GRADER AND REEL TENDER INTRAORAL PHOTO Routine 06/18/2016 2:00 AM CLEAN RICE GRADER AND REEL TENDER INTRAORAL PHOTO Routine 06/18/2016 2:00 AM CLEAN RICE GRADER AND REEL TENDER INTRAORAL PHOTO Routine 06/18/2016 2:00 AM CLEAN RICE GRADER AND REEL TENDER INTRAORAL PHOTO Routine 06/18/2016 2:00 AM CLEAN RICE GRADER AND REEL TENDER Visit Diagnoses Not on file Insurance
--- OUTSIDE RECORDS SUMMARY | 2024-12-05 13:22 | XMS_ITS | Clinical Summary ---
Author Organization [facility] Health Address [address] [place] [address] Care Team Providers Care Director Of Design Name Role Phone Unavailable Primary Care Provider [...] (10/17/2021): Referred to GI department, referal in [facility] Last Assessment & Plan: Assessment: Patient [...] appendix but I'm not finding that in [facility]. My concerns are some degree [...] - ADULT Routine 06/18/2016 2 :00 AM BUGGY LADLE TENDER from Last 3 Months or Most Recently Relevant to Health Maintenance Insurance [facility] PPO
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
[2024-12-05 14:48] VITALS: BP 112/64; PULSE 94; RESP 18; O2SAT 100
== END 2024-12-05 14:50 | disposition home or self-care (01) ==
PROVIDERS: Emergency Provider Physician Assistant; PCP Physician Assistant
DX: S30.0XXA Contusion of lower back and pelvis, initial encounter (principal); F17.210 Nicotine dependence, cigarettes, uncomplicated; F41.9 Anxiety disorder, unspecified; W01.0XXA Fall on same level from slipping, tripping and stumbling without subsequent striking against object, initial encounter
CPT/HCPCS: 72131; 81025; 96372; 99284; A9270; J1885